=== PATIENT | male | born 1935 | race Asian ===

== ENCOUNTER → 2016-12-19 | Outpatient (CLI) | payer MEDICAID, OTHER ==
[2016-12-19 10:05] LABS: ALBUMIN 3.9 GM/DL (3.2-5.2); ALBUMIN/GLOBULIN RATIO 1.15 (1.00-1.93); ALKALINE PHOSPHATASE 70 U/L (45-117); ALT/SGPT 25 U/L (12-78); ANION GAP 6 MEQ/L (8-16); AST/SGOT 20 U/L (15-37); BILIRUBIN,TOTAL 1.7 MG/DL (0.2-1.0); BLOOD UREA NITROGEN 14 MG/DL (7-18); CALCIUM LEVEL 8.6 MG/DL (8.8-10.2); CARBON DIOXIDE LEVEL 32 MEQ/L (21-32); CHLORIDE LEVEL 103 MEQ/L (98-107); CHOLESTEROL LEVEL 176 MG/DL (<200); CREATININE FOR GFR 1.15 MG/DL (0.70-1.30); GLOMERULAR FILTRATION RATE > 60.0 (>42); GLUCOSE, FASTING 94 MG/DL (83-110); POTASSIUM SERUM 4.2 MEQ/L (3.5-5.1); SODIUM LEVEL 141 MEQ/L (136-145); TOTAL PROTEIN 7.3 GM/DL (6.4-8.2); TRIGLYCERIDES LEVEL 108 MG/DL (<150)
== END ==
LOC: M LAB 08:57
PROVIDERS: ATTEND Family Medicine Addiction Medicine
DX: Z00.01 Encounter for general adult medical examination with abnormal findings (principal); N40.0 Benign prostatic hyperplasia without lower urinary tract symptoms

== ENCOUNTER → 2017-06-20 | Outpatient (CLI) | payer OTHER ==
[2017-06-20 09:16] LABS: ALBUMIN 3.6 GM/DL (3.2-5.2); ALBUMIN/GLOBULIN RATIO 0.95 (1.00-1.93); ALKALINE PHOSPHATASE 80 U/L (45-117); ALT/SGPT 71 U/L (12-78); ANION GAP 7 MEQ/L (8-16); AST/SGOT 45 U/L (15-37); BILIRUBIN,TOTAL 1.1 MG/DL (0.2-1.0); BLOOD UREA NITROGEN 13 MG/DL (7-18); CALCIUM LEVEL 8.7 MG/DL (8.8-10.2); CARBON DIOXIDE LEVEL 30 MEQ/L (21-32); CHLORIDE LEVEL 106 MEQ/L (98-107); CHOLESTEROL LEVEL 165 MG/DL (<200); CREATININE FOR GFR 1.05 MG/DL (0.70-1.30); GLOMERULAR FILTRATION RATE > 60.0 (>42); GLUCOSE, FASTING 89 MG/DL (83-110); POTASSIUM SERUM 4.3 MEQ/L (3.5-5.1); SODIUM LEVEL 143 MEQ/L (136-145); TOTAL PROTEIN 7.4 GM/DL (6.4-8.2); TRIGLYCERIDES LEVEL 80 MG/DL (<150)
== END ==
LOC: M LAB 07:47
PROVIDERS: ATTEND Family Medicine Addiction Medicine
DX: I10 Essential (primary) hypertension (principal)

== ENCOUNTER → 2017-06-20 | Outpatient (CLI) | payer OTHER ==
[2017-06-21 10:13] LABS: PSA TOTAL 2.5 ng/mL (0.0-4.0)
== END ==
LOC: M LAB 07:50
PROVIDERS: ATTEND Specialist
DX: R97.20 Elevated prostate specific antigen [PSA] (principal)

== ENCOUNTER → 2017-08-01 | Outpatient (CLI) | payer OTHER ==
--- NOTE | 2017-08-01 07:43 | REP ---
Clinical: Cough. Technique: PA and lateral. Comparison: 05/22/2016. Findings: Mediastinum and cardiac silhouette are stable with tortuous thoracic aorta and mild cardiomegaly again appreciated. Lung burdick demonstrate diffuse chronic stable interstitial changes and scattered chronic granulomata. No obvious acute consolidation, effusion, or pneumothorax. Skeletal structures demonstrate age-related osteopenia and degenerative changes. Impression: Chronic stable interstitial changes. No obvious acute cardiopulmonary process. Signed by Farooq Rodgers MD 08/01/2017 07:34 A
== END ==
LOC: M RAD 07:15
PROVIDERS: ATTEND Family Medicine Addiction Medicine
DX: R05 Cough (principal)

== ENCOUNTER 2017-09-24 07:22 | Day surgery (SDC) | payer OTHER ==
[~2017-09-24] VITALS: Ht 160 cm; Wt 57.6 kg
[~2017-09-24 07:22] MED LIST: ACETAMINOPHEN 325 MG TAB PO PRN; AMLO5TAB2 PO; BSS with VANC/TOB/EPI for EYE CASES IR ONE; CYCLOPENTOLATE 2% OPHTH SOLN 2ML BTL OS ONE; FINA5TAB2 PO; LIDOCAINE 3.5 % 1ML OPHTH TOPICAL GEL OU ONE; OFLOXACIN 0.3 % (OCUFLOX) OPTH SOL 5ML OS ONE; PHENYLEPHRINE 2.5% OPHTH SOL 2ML OS ONE; PROPARACAINE 0.5% OPHTH SOL 15ML OS PRN; TROPICAMIDE 1% OPHTH SOLN 2ML OS ONE; Tamsulosin PO
[2017-09-24] MEDS ORDERED: KETOROLAC 0.5% OPHTH SOLN OS ONE (07:45)
[2017-09-24] MEDS ORDERED: TRIMETHOBENZAMIDE 300 MG CAP PO PRN (07:45)
[2017-09-24] MEDS ORDERED: AcetaZOLAMIDE 500 MG ER CAP PO ONE (07:45)
[2017-09-24] MEDS ORDERED: POVIDONE-IODINE 5% OPHTH PREP SOL 30ML As Ordered ONE (09:58)
[2017-09-24] MEDS ORDERED: TRIAMCINOLONE PRES FR 40 MG/ML 1ML(TRIESENCE)(OR EYE ONLY)(J3300 PER 1MG) As Ordered ONE (09:58)
[2017-09-24] MEDS ORDERED: HEALON DUET (HEALON 10MG/ML 0.55ML & HEALON ENDOCOAT 30MG/ML 0.85ML) As Ordered ONE (09:58)
[2017-09-24] MEDS ORDERED: LIDOCAINE 1% SDV 5 ML VIAL As Ordered ONE (09:58)
[2017-09-24] MEDS ORDERED: MOXIFLOXACIN IN BSS 0.25MG/0.25ML INTRACAMERAL INJ (OR EYE ONLY)(J2280) As Ordered ONE (09:58)
[2017-09-24] MEDS ORDERED: MIDAZOLAM INJ 2 MG/2 ML VIAL (J2250) As Ordered ONE (10:26)
[2017-09-24] MEDS ORDERED: fentaNYL 100 MCG/2 ML INJECTION (J3010) As Ordered ONE (10:26)
[2017-09-24] MEDS ORDERED: ACETYLCHOLINE OPHTH SOLN 1% 2ML (MIOCHOL-E) As Ordered ONE (10:31)
[2017-09-24 11:10] VITALS: BP 148/82
== END 2017-09-24 11:26 | disposition home or self-care (01) ==
LOC: M SDC 07:22
PROVIDERS: ATTEND Ophthalmology
DX: H26.9 Unspecified cataract (principal); Z87.891 Personal history of nicotine dependence; Z79.899 Other long term (current) drug therapy

== ENCOUNTER 2018-02-11 07:45 | Day surgery (SDC) | payer OTHER ==
[~2018-02-11 07:45] MED LIST changes: +ACETAMINOPHEN 325 MG TAB PO; -ACETAMINOPHEN 325 MG TAB PO PRN; -AMLO5TAB2 PO; -BSS with VANC/TOB/EPI for EYE CASES IR ONE; -CYCLOPENTOLATE 2% OPHTH SOLN 2ML BTL OS ONE; -FINA5TAB2 PO; -LIDOCAINE 3.5 % 1ML OPHTH TOPICAL GEL OU ONE; -OFLOXACIN 0.3 % (OCUFLOX) OPTH SOL 5ML OS ONE; -PHENYLEPHRINE 2.5% OPHTH SOL 2ML OS ONE; +PHENYLEPHRINE HCL 10 % OPHTH. SOL 5ML OD; -PROPARACAINE 0.5% OPHTH SOL 15ML OS PRN; +PROPARACAINE 0.5% OPHTH SOL 15ML XX; -TROPICAMIDE 1% OPHTH SOLN 2ML OS ONE; -Tamsulosin PO
[2018-02-11] MEDS: PHENYLEPHRINE 2.5% OPHTH SOL 2ML OD (09:40)
[2018-02-11] MEDS: OFLOXACIN 0.3 % (OCUFLOX) OPTH SOL 5ML OD (09:40)
[2018-02-11] MEDS: TROPICAMIDE 1% OPHTH SOLN 2ML OD (09:40)
[2018-02-11] MEDS: CYCLOPENTOLATE 2% OPHTH SOLN 2ML BTL OD (09:40)
[2018-02-11] MEDS: LIDOCAINE 3.5 % 1ML OPHTH TOPICAL GEL OU (09:41)
[2018-02-11] MEDS ORDERED: fentaNYL 100 MCG/2 ML INJECTION (J3010) As Ordered (10:25)
[2018-02-11] MEDS ORDERED: MIDAZOLAM INJ 2 MG/2 ML VIAL (J2250) As Ordered (10:25)
[2018-02-11] MEDS: POVIDONE-IODINE 5% OPHTH PREP SOL 30ML As Ordered (10:55)
[2018-02-11] MEDS: HEALON DUET (HEALON 10MG/ML 0.55ML & HEALON ENDOCOAT 30MG/ML 0.85ML) As Ordered ×3 (10:55→11:07)
[2018-02-11] MEDS: CEFUROXIME 1MG/0.1ML INTRACAMERAL INJ As Ordered (10:55)
[2018-02-11] MEDS: LIDOCAINE 1% SDV 5 ML VIAL As Ordered (10:55)
[2018-02-11] MEDS: BSS with VANC/TOB/EPI for EYE CASES IR (10:56)
[2018-02-11] MEDS ORDERED: TRIMETHOBENZAMIDE 300 MG CAP PO (11:30)
[2018-02-11] MEDS: AcetaZOLAMIDE 500 MG ER CAP PO (11:37)
[2018-02-11] MEDS: KETOROLAC 0.5% OPHTH SOLN XX (11:37)
== END 2018-02-11 12:27 | disposition home or self-care (01) ==
LOC: M SDC 07:45
DX: H25.9 Unspecified age-related cataract (principal); H40.811 Glaucoma with increased episcleral venous pressure, right eye; N40.0 Benign prostatic hyperplasia without lower urinary tract symptoms; Z87.891 Personal history of nicotine dependence; Z86.73 Personal history of transient ischemic attack (TIA), and cerebral infarction without residual deficits; Z79.51 Long term (current) use of inhaled steroids; Z79.899 Other long term (current) drug therapy
CPT/HCPCS: 66984

== ENCOUNTER → 2019-08-21 | Outpatient (CLI) | payer OTHER ==
[~2019-08-21] MED LIST changes: -ACETAMINOPHEN 325 MG TAB PO; +AMLO5TAB6 PO; +FINA5TAB2 PO; +FLOM0.4C39 PO; +INCR1INH INH; -PHENYLEPHRINE HCL 10 % OPHTH. SOL 5ML OD; -PROPARACAINE 0.5% OPHTH SOL 15ML XX; +Tamsulosin PO; +VENTAER INH
[2019-08-21 08:05] LABS: BASO % 0.7 % (0.0-1.0); EOS # 0.4 10^3/uL (0.0-0.5); EOS % 6.4 % (0.0-3.0); HEMATOCRIT 44.5 % (42.0-52.0); HEMOGLOBIN 14.2 g/dl (13.5-17.5); LYMPH # 1.2 10^3/uL (1.5-5.0); MEAN CORPUSCULAR HGB CONC 31.9 g/dl (32.0-36.5); MEAN CORPUSCULAR VOLUME 94.1 fl (80.0-96.0); MONO # 0.5 10^3/uL (0.0-0.8); MONO % 7.8 % (0.0-5.0); NEUTROPHILS # 3.7 10^3/uL (1.5-8.5); NEUTROPHILS % 64.8 % (36.0-66.0); PLATELET COUNT, AUTOMATED 197 10^3/uL (150-450); RED BLOOD COUNT 4.73 10^6/uL (4.30-6.10); WHITE BLOOD COUNT 5.7 10^3/uL (4.0-10.0)
[2019-08-21 08:35] LABS: ALBUMIN 3.7 GM/DL (3.2-5.2); ALT/SGPT 37 U/L (12-78); BILIRUBIN,TOTAL 1.6 MG/DL (0.2-1.0); BLOOD UREA NITROGEN 16 MG/DL (7-18); CARBON DIOXIDE LEVEL 31 MEQ/L (21-32); CHLORIDE LEVEL 104 MEQ/L (98-107); CHOLESTEROL LEVEL 166 MG/DL (<200); CHOLESTEROL RISK RATIO 2.553 (<5); CREATININE FOR GFR 1.23 MG/DL (0.70-1.30); GLOMERULAR FILTRATION RATE > 60.0 (>35); GLUCOSE, FASTING 87 MG/DL (70-100); HDL CHOLESTEROL 65 MG/DL (>40); LDL CHOLESTEROL 84 MG/DL (<100); NON-HDL-C 101 MG/DL; POTASSIUM SERUM 4.1 MEQ/L (3.5-5.1); PROSTATIC SPECIFIC AG MONITOR 3.88 NG/ML (< 4.00); SODIUM LEVEL 141 MEQ/L (136-145); TOTAL PROTEIN 7.6 GM/DL (6.4-8.2); TRIGLYCERIDES LEVEL 86 MG/DL (<150)
== END ==
LOC: M LAB 07:06
PROVIDERS: ATTEND Family Medicine Addiction Medicine
DX: J44.9 Chronic obstructive pulmonary disease, unspecified (principal)

== ENCOUNTER → 2019-09-05 | Outpatient (REF) | payer OTHER, MEDICAID ==
[2019-09-05 14:20] LABS: HEMOGLOBIN A1c 5.6 %
== END ==
LOC: M LAB REF 12:32
PROVIDERS: ATTEND Family Medicine
DX: Z13.228 Encounter for screening for other metabolic disorders (principal)

== ENCOUNTER → 2020-06-18 | Outpatient (REF) | payer OTHER, MEDICAID ==
[~2020-06-18] MED LIST changes: +AMLO1TAB24 PO; -AMLO5TAB6 PO; +AUGM875T28 PO; +COLA100C5 PO; +DULC5TAB PO; +PANT20TA6 PO; +PRED20TA PO; +SENN1TAB96 PO
== END ==
LOC: M LAB REF 16:52
PROVIDERS: ATTEND Nurse Practitioner Family
DX: R10.816 Epigastric abdominal tenderness (principal); R11.0 Nausea

== ENCOUNTER 2020-06-20 11:31 | Inpatient (IN) | payer MEDICAID, OTHER ==
[~2020-06-20] VITALS: Ht 162.6 cm; Wt 59.8 kg
[2020-06-20] MEDS: PANTOPRAZOLE 40MG VIAL (C9113 PER 1) IV SCH (09:00)
[~2020-06-20 11:31] MED LIST changes: -AUGM875T28 PO; -COLA100C5 PO; -DULC5TAB PO; -PANT20TA6 PO; -PRED20TA PO; -SENN1TAB96 PO
[2020-06-20] MEDS ORDERED: NS 500 ML IV ONE ×2 (12:30→12:45)
[2020-06-20 13:20] LABS: BASO % 0.3 % (0.0-1.0); EOS % 0.2 % (0.0-3.0); HEMATOCRIT 43.6 % (42.0-52.0); HEMOGLOBIN 14.4 g/dl (13.5-17.5); LYMPH # 1.1 10^3/uL (1.5-5.0); MEAN CORPUSCULAR HEMOGLOBIN 31.2 pg (27.0-33.0); MEAN CORPUSCULAR VOLUME 94.6 fl (80.0-96.0); MONO # 0.9 10^3/uL (0.0-0.8); MONO % 5.9 % (0.0-5.0); NEUTROPHILS # 13.7 10^3/uL (1.5-8.5); NEUTROPHILS % 86.2 % (36.0-66.0); PLATELET COUNT, AUTOMATED 149 10^3/uL (150-450); RED BLOOD COUNT 4.61 10^6/uL (4.30-6.10); WHITE BLOOD COUNT 15.8 10^3/uL (4.0-10.0)
[2020-06-20 13:43] LABS: ALBUMIN 3.7 GM/DL (3.2-5.2); ALT/SGPT 124 U/L (12-78); BILIRUBIN,TOTAL 8.9 MG/DL (0.2-1.0); BLOOD UREA NITROGEN 23 MG/DL (7-18); CALCIUM LEVEL 8.7 MG/DL (8.8-10.2); CARBON DIOXIDE LEVEL 32 MEQ/L (21-32); CHLORIDE LEVEL 98 MEQ/L (98-107); CK-MB VALUE MASS 3.8 NG/ML (<3.6); CPK CREATINE PHOSPHOKINASE 538 U/L (39-308); CREATININE FOR GFR 1.65 MG/DL (0.70-1.30); GLOMERULAR FILTRATION RATE 42.7 (>35); GLUCOSE, FASTING 106 MG/DL (70-100); LIPASE 117 U/L (73-393); MB/CK RELATIVE INDEX 0.71 (< OR =4); SODIUM LEVEL 135 MEQ/L (136-145); TOTAL PROTEIN 7.6 GM/DL (6.4-8.2); TROPONIN I < 0.02 NG/ML (< 0.10)
[2020-06-20] MEDS ORDERED: PIPERACILLIN/TAZOBACTAM SOD 3.375 GM in D5W MINI-BAG PLUS 50 ML IV ONE (15:30)
[2020-06-20] MEDS ORDERED: ONDANSETRON 4MG/2ML VIAL IV PRN (15:45)
[2020-06-20] MEDS: NS 1,000 ML IV SCH (16:02)
--- NOTE | 2020-06-20 16:13 | HPEPDOC ---
[facility] Medical History & Physical Date of Admission Jun 20, 2020 Date of Service: Jun 20, 2020 Attending Physician: Adrianna Zuñiga MD History and Physical CHIEF COMPLAINT: Worsening abdominal pain HISTORY OF PRESENT ILLNESS: Patient is an 84 y/o M with PMH of BPH, COPD, cataracts, HTN who presents to [facility] ER with four days of worsening abdominal pain. Patient is hard of hearing and there is a language barrier but he understands Filipino well and had family help with piecing story together. Patient has been to UC both on 06/18/20 and again today for worsening diffuse abdominal pain and abdominal bloating. Today he was noted to have acute renal failure on labs and was advised to come to ER for further evaulation. Pain is new, sharp, diffuse, constant, 8/10 on pain scale. Nothing helps the pain. He also complains of increased wheezing and SOB over the past 1 week. He has had no BM since . Denies n/v/d, chest pain, fevers, recent illness In our ER, patient was very wheezy but saturating well on RA. CT abd/pelvis showed ? RLL consolidation PNA vs. atelectasis, irregular wall thickening and distended gallbladder concerning for acute cholecystitis, irregular bladder wall thickening. Dr. Rosas (general surgery) was contacted, felt like this was not surgical at this time but to treat with antibiotics. Zosyn was given in ER. WBC 15.8, T bili was elevated at 8.9, D bili 4. 0, AST/ALT 94/124, UA neg, alk phos 121, Cr 1.65. LA pending, CXR pending. On exam, patient had distended abdomen, tympanic BS, tenderness diffusely on exam. He was given steroids, duoneb for wheezing. Case discussed with Dr. Watt who will be consulted to see to r/o biliary tree obstruction possibly causing acute cholecystitis. patient was admitted under inpatient status for acute cholecystitis, r/o biliary tree obstruction, COPD exacerbation, acute renal failure, questionable community acquired PNA. PAST MEDICAL HISTORY: 1. COPD 2. BPH 3. HTN PAST SURGICAL HISTORY: 1. Brain surgery for blood clot evacuation 2. Prostate surgery SOCIAL HISTORY: Lives in [place] with family. Tobacco use: Prior smoker 2 PPD, quit 1977. No alcohol or IV drug use Does not use walker or cane Full Code FAMILY HISTORY: Father: no medical problems. at unknown age Mother: No medical problems. at 85 y/o ALLERGIES: Please see below. HOME MEDICATIONS: Please see below. PHYSICAL EXAMINATION: VITAL SIGNS: 98.8, 108, 18, 153/81, 96% on RA GENERAL APPEARANCE: thin male, audibly wheezing, no respiratory distress HEENT: AT/NC, PERRLA, corrective lenses in place CARDIOVASCULAR: S1S2 +, no M/R/G LUNGS: Wheezing bilaterally, decreased breath sounds bilaterally. No rhonchi or rales ABDOMEN: Distended abdomen, tympanic, tender diffusely to palpation. BS + in four quadrants. MUSCULOSKELETAL: Normal ROM EXTREMITIES: No cyanosis, pulses + in all extremities. Warm to touch NEUROLOGICAL: CN 2-12 intact, no focal deficits. PSYCHIATRIC: Normal mood and affect LABORATORY DATA: See below. IMAGING: CT abd/pelvis: RLL consolidation- atelectasis vs. PNA, irregular wall thickening with distended gallbladder- acute cholecystitis vs. ___. Irregular bladder wall thickening. No ascities CXR: pending MICROBIOLOGY: BCx, sputum cx, UA ordered ASSESSMENT: 84 y/o M with PMH of BPH, HTN, COPD admitted to acute inpatient for acute cholecystitis, r/o biliary tree obstruction, COPD exacerbation, acute renal failure, questionable community acquired PNA. PLAN: 1. Abdominal pain/distention likely 2/2 to acute cholecystitis, r/o biliary tree obstruction with sepsis. Labs as seen below, CT above. Per ER attending who spoke with general surgery, c/w abx and no surgical indication at this time. Discussed with GI (Dr. Watt) who may need to do ERCP in AM. F/u GI recommendations and lactic acid, blood cultures. Zosyn, keep NPO, pain control, IVFs, daily CMP, CBC 2. COPD exacerbation. F/u official CXR results. S/p 125 mg IV solumedrol in ER. C/w duonebs ATC, albuterol PRN, methylprenisolone Q8hrs, azithromycin, zosyn, incentive spirometer. 3. Community aquired PNA. F/u official CXR results, suspicious on CT abd/pelvis and with new COPD exacerbation. C/w zosyn, azithromycin. 4. Acute renal failure likely 2/2 to sepsis, dehdration. C/w IVFs at 100 cc/hr, daily labs. Avoid nephrotoxic medications. 5. BPH. Holding home PO meds for now. 6. HTN. Slightly elevated at 150-160 mmHg systolic. Holding PO meds for now. 7. GI px. PPI IV. 8. DVT px. Enoxaparin SC daily.. DISOPOSITION: Admit to inpatient status. Possible ERCP tomorrow, f/u GI recommendations. Vital Signs Vital Signs Date Time Temp Pulse Resp B/P (MAP) Pulse Ox O2 Delivery O2 Flow Rate FiO2 06/20/20 15:15 108 18 153/81 (105) 96 Room Air 06/20/20 11:32 98.8 Laboratory Data Labs 24H Laboratory Tests 2 06/20/20 13:02: Immature Granulocyte % (Auto) 0.4, Neutrophils (%) (Auto) 86.2H, Lymphocytes (%) (Auto) 7.0L, Monocytes (%) (Auto) 5.9H, Eosinophils (%) (Auto) 0.2, Basophils (%) (Auto) 0.3, Neutrophils # (Auto) 13.7H, Lymphocytes # (Auto) 1.1L, Monocytes # (Auto) 0.9H, Eosinophils # (Auto) 0.0, Basophils # (Auto) 0.0, Nucleated Red Blood Cells % (auto) 0.0, Urine Color JASON, Urine Appearance CLEAR, Urine pH 6.0, Urine Specific [place] 1.008, Urine Protein NEGATIVE, Urine Glucose (UA) NEGATIVE, Urine Ketones NEGATIVE, Urine Blood 2+H, Urine Nitrite NEGATIVE, Urine Bilirubin NEGATIVE, Urine Urobilinogen 2.0H, Urine Leukocyte Esterase NEGATIVE, Urine WBC (Auto) 2, Urine RBC (Auto) 1, Urine Hyaline Casts (Auto) 0, Urine Bacteria (Auto) NEGATIVE, Urine Squamous Epithelial Cells 0, Urine Mucus (Auto) SMALL, Urine Sperm (Auto) , Anion Gap 5L, Glomerular Filtration Rate 42.7, Lactic Acid Level 1.4, Calcium Level 8.7L, Total Bilirubin 8.9H, Direct Bilirubin 4.0H, Aspartate Amino Transf (AST/SGOT) 94H, Alanine Aminotransferase (ALT/SGPT) 124H, Alkaline Phosphatase 121H, Total Creatine Kinase 538H, Creatine Kinase MB 3.8H, Creatine Kinase MB Relative Index 0.71, Troponin I < 0.02, Total Protein 7.6, Albumin 3.7, Albumin/Globulin Ratio 0.9, Lipase 117 CBC/BMP Laboratory Tests 06/20/20 13:02 Microbiology Microbiology 06/20/20 Blood Culture, Received Pending 06/20/20 Blood Culture, Received Pending Home Medications Scheduled Amlodipine Besylate (Amlodipine Besylate) 5 Mg Tab, 1 TAB PO DAILY Finasteride (Finasteride) 5 Mg Tab, 1 TAB PO DAILY Tamsulosin HCl (Flomax) 0.4 Mg Cap, 0.4 MG PO DAILY Umeclidinium [place] (Incruse Ellipta) 62.5 Mcg/Inh Inh, 1 PUFF INH DAILY Scheduled PRN Albuterol Sulfate (Ventolin Hfa) 108 Mcg/Act Aer, 2 PUFFS INH Q4H PRN for SHORTNESS OF BREATH Allergies Coded Allergies: No Known Allergies (Unverified , 02/08/18) A-FIB/CHADSVASC A-FIB History Current/History of A-Fib/PAF?: No Current PO Anticoag Therapy: No Age/Risk Factor Scoring CHADSVASC: CHADSVASC Response (Comments) Value Gender Risk Factor Male 0 Hx of CHF No 0 Hx of HTN Yes 1 Hx of Stroke/TIA/or VTE No 0 Hx of Diabetes No 0 Hx of Vascular Disease No 0 Total 1 Treatment Treatment ordered: Other Other anticoagulant ordered: enoxparin Adrianna Zuñiga MD Jun 20, 2020 16:13
[2020-06-20] MEDS ORDERED: ALBUTEROL SULFATE 2.5 MG/0.5 ML INH NEB SOLN NEB PRN (16:15)
[2020-06-20 16:30] VITALS: BP 120/84
[2020-06-20] MEDS ORDERED: methylPREDNISolone 125MG 2ML VIAL IV ONE (17:00)
[2020-06-20 17:40] LABS: INR 1.12; PROTHROMBIN TIME 14.6 SECONDS (11.8-14.0)
[2020-06-20 17:41] LABS: PARTIAL THROMBOPLASTIN TIME 33.3 SECONDS (25.0-38.4)
[2020-06-20] MEDS: AZITHROMYCIN INJ 500 MG, VIAL MATE ADAPTER 1 EACH in D5W 250 ML IV SCH (18:06)
--- NOTE | 2020-06-20 19:38 | CR.PDOC ---
General Date of Consultation: Jun 20, 2020 Referring Provider: Adrianna Zuñiga MD Attending Physician: HECTOR ACOSTA MD Consultation Referring physician / PCP : Dr. Zuñiga Reason for consult: Abnormal liver tests. HPI: 84 year old male patient with BPH, COPD, cataracts, HTN admitted to [facility] for abdominal pain. Patient has issues with communicating well in Urdu but able to understand well and answer questions appropriately. History also corroborated with his daughter. Patient reports having upper abdominal pain, and diffuse abdominal pain , with abdominal bloating. As per patient's family he is also having constipation.. He also complains of increased wheezing and chronic short ness of breath ( from his COPD). Patient clinically appears to have labored breathing. OFF note: In our ER, CT abd/pelvis showed ? RLL consolidation PNA vs. atelectasis, irregular wall thickening and distended gallbladder concerning for acute cholecystitis, irregular bladder wall thickening. Dr. Rosas (general surgery) was contacted, felt like this was not surgical at this time but to treat with antibiotics. Zosyn was given in ER. WBC 15.8, Patient was noted to have abnormal liver panel. Pertinent negative GI symptoms: Patient denies nausea, vomiting, diarrhea, loss of appetite, early satiety or unintentional weight loss, hematemesis, melena or hematochezia. Review of Systems: GI: as stated above CVS: No chest pain, No palpitations, No leg swelling RS: has baseline Shortness of breath, with recent worsening. [employer]: No loss of consciousness, No focal motor weakness., Hematology: No easy bruising, No gum bleeding, Musculoskeletal: No joint pain, ambulating well. : No blood in urine, No burning sensation of the urine ENT: No ear discharge/ pain, No dysphagia. Eyes: No photophobia. Skin: No rash Home medications: reviewed. No Plavix and No anticoagulants Medical h/o: As above. Surgical h/o: None on abdomen. Social h/o: Denies Alcohol, Prior history of smoking, Denies IVDA/ drugs. Family h/o of GI cancers - None Prior Endoscopies: None in past. Prior GI evaluation: None in [facility] Exam: Vitals: reviewed General: Alert and oriented x 3, not in acute distress HEENT: No pallor, no icterus. Normal oropharynx, NO cervical lymphadenopathy. Chest: symmetric with bilateral air entry, CVS: S1, S2 heard, Abdomen: non-distended, soft, non-tender, no rigidity or guarding, no palpable masses, normal bowel sounds heard. Rectal exam: Patient refused / Deferred at this time in view of scheduled colonoscopy. Extremities: pulses palpable, no pedal edema, [employer]: no focal motor or sensory deficits. Moves all extremities Skin: no rash. Labs: reviewed. Imaging: none / reviewed. Impression: -- Abnormal liver panel with cholecystitis and prior chronic abnormal liver panel with new severely elevated bilirubin levels ( both conjugated and unconjugated hyperbilirubinemia), no typical biliary pain DDx-- rule out biliary stones vs acute hepatitis vs cholecystitis related. -- Acute on chronic renal failure and abnormal bladder wall thickening and urinalysis showed blood in urine Needs further evaluation. -- Chronic constipation and no prior Colonoscopy, no family h/o colon cancer -- Likely functional vs rule out colon polyps. Recommendations: -- Patient educated about the prior test results and all questions answered. -- Oral liquid diet. -- Management of acute renal failure as per primary team. -- Consider empiric antibiotics in view of cholecystitis. -- Will schedule for ERCP based on the clinical course. -- Patient educated about the procedure(s), indications, risks (including but not limited to bleeding, infection, perforation, anesthesia risks, pancreatitis, including ), benefits and all alternatives including conservative measures without intervention. Patient verbalized understanding and consented for the procedure(s). -- Gi will follow -- Patient is educated about the plan of care and he verbalized understanding and agreed. Addendum/ Follow up ( post ERCP): 06/22/2020: Patient underwent ERCP with Sphincterotomy, balloon sweep, brush cytology of CBD and plastic stent placement. Patient tolerated the procedure well. Noted borderline dilated CBD, no stones, no cholangitis. Patient was recommended to advance diet as tolerated. Viral hepatitis work up is negative. Avoid NSAIDs for atleast 5 days. Antibiotics course for the suspected Pneumonia / cholecystitis. Miralax 17gm twice daily for constipation- to adjust dose based on bowel movements. Elective EGD to remove the CBD stent in 8-12 weeks. Follow up in GI clinic in 6 weeks Vital Signs/I&O Vital Signs Date Time Temp Pulse Resp B/P (MAP) Pulse Ox O2 Delivery O2 Flow Rate FiO2 06/20/20 16:39 97.9 103 18 171/86 (114) 95 Room Air Laboratory Data Labs 24H Laboratory Tests 2 06/20/20 13:02: Immature Granulocyte % (Auto) 0.4, Neutrophils (%) (Auto) 86.2H, Lymphocytes (%) (Auto) 7.0L, Monocytes (%) (Auto) 5.9H, Eosinophils (%) (Auto) 0.2, Basophils (%) (Auto) 0.3, Neutrophils # (Auto) 13.7H, Lymphocytes # (Auto) 1.1L, Monocytes # (Auto) 0.9H, Eosinophils # (Auto) 0.0, Basophils # (Auto) 0.0, Nucleated Red Blood Cells % (auto) 0.0, Urine Color JASON, Urine Appearance CLEAR, Urine pH 6.0, Urine Specific [place] 1.008, Urine Protein NEGATIVE, Urine Glucose (UA) NEGATIVE, Urine Ketones NEGATIVE, Urine Blood 2+H, Urine Nitrite NEGATIVE, Urine Bilirubin NEGATIVE, Urine Urobilinogen 2.0H, Urine Leukocyte Esterase NEGATIVE, Urine WBC (Auto) 2, Urine RBC (Auto) 1, Urine Hyaline Casts (Auto) 0, Urine Bacteria (Auto) NEGATIVE, Urine Squamous Epithelial Cells 0, Urine Mucus (Auto) SMALL, Urine Sperm (Auto) , Anion Gap 5L, Glomerular Filtration Rate 42.7, Lactic Acid Level 1.4, Calcium Level 8.7L, Total Bilirubin 8.9H, Direct Bilirubi n 4.0H, Aspartate Amino Transf (AST/SGOT) 94H, Alanine Aminotransferase (ALT/SGPT) 124H, Alkaline Phosphatase 121H, Total Creatine Kinase 538H, Creatine Kinase MB 3.8H, Creatine Kinase MB Relative Index 0.71, Troponin I < 0.02, Total Protein 7.6, Albumin 3.7, Albumin/Globulin Ratio 0.9, Lipase 117 06/20/20 17:22: Lactic Acid Level 2.9*H, Prothrombin Time 14.6H, Prothromb Time International Ratio 1.12, Activated Partial Thromboplast Time 33.3 CBC/BMP Laboratory Tests 06/20/20 13:02 Microbiology Microbiology 06/20/20 Blood Culture, Received Pending 06/20/20 Blood Culture, Received Pending 06/20/20 Blood Culture, Received Pending 06/20/20 Blood Culture, Received Pending Allergies Coded Allergies: No Known Allergies (Unverified , 02/08/18) Home Medications Scheduled Amlodipine Besylate (Amlodipine Besylate) 5 Mg Tab, 5 MG PO DAILY, (Reported) Finasteride (Finasteride) 5 Mg Tab, 5 MG PO DAILY, (Reported) @ NOON Tamsulosin HCl (Flomax) 0.4 Mg Cap, 0.4 MG PO QHS, (Reported) Umeclidinium [place] (Incruse Ellipta) 62.5 Mcg/Inh Inh, 1 PUFF INH DAILY, (Reported) Scheduled PRN Albuterol Sulfate (Ventolin Hfa) 108 Mcg/Act Aer, 2 PUFFS INH Q4H PRN for SHORTNESS OF BREATH, (Reported) HECTOR ACOSTA MD Jun 20, 2020 19:38
[2020-06-20] MEDS: IPRATROPIUM 0.5MG/ALBUTEROL 2.5MG INH SOL UD 3ML (DUONEB) NEB SCH (19:40)
[2020-06-20] MEDS: PIPERACILLIN/TAZOBACTAM SOD 3.375 GM in D5W MINI-BAG PLUS 50 ML IV SCH (21:09)
[2020-06-20] MEDS: HEPARIN SOD (PORCINE) 5000UNITS/ML 1ML VIAL/SYRINGE SQ SCH (21:09)
[2020-06-20] MEDS: MIRALAX *UNIT DOSE* 17GM PACKET PO SCH (21:10)
[2020-06-20 22:00] VITALS: BP 112/72
[2020-06-21] MEDS: methylPREDNISolone 125MG 2ML VIAL IV SCH ×2 (00:42→09:50)
[2020-06-21] MEDS: IPRATROPIUM 0.5MG/ALBUTEROL 2.5MG INH SOL UD 3ML (DUONEB) NEB SCH ×4 (02:08→19:12)
[2020-06-21] MEDS: PIPERACILLIN/TAZOBACTAM SOD 3.375 GM in D5W MINI-BAG PLUS 50 ML IV SCH ×4 (04:26→22:09)
[2020-06-21] MEDS: NS 1,000 ML IV SCH ×3 (04:26→22:15)
[2020-06-21 06:00] VITALS: BP 112/63
[2020-06-21 06:29] LABS: HEMATOCRIT 36.5 % (42.0-52.0); MEAN CORPUSCULAR HEMOGLOBIN 31.8 pg (27.0-33.0); MEAN CORPUSCULAR HGB CONC 33.4 g/dl (32.0-36.5); MEAN CORPUSCULAR VOLUME 95.1 fl (80.0-96.0); PLATELET COUNT, AUTOMATED 134 10^3/uL (150-450); RED BLOOD COUNT 3.84 10^6/uL (4.30-6.10); WHITE BLOOD COUNT 12.4 10^3/uL (4.0-10.0)
[2020-06-21 06:33] LABS: HEMOGLOBIN 12.2 g/dl (13.5-17.5)
[2020-06-21 06:50] LABS: LDH LACTATE DEHYDROGENASE 171 U/L (87-241)
[2020-06-21 06:51] LABS: ALBUMIN 2.6 GM/DL (3.2-5.2); BILIRUBIN,TOTAL 3.6 MG/DL (0.2-1.0); CALCIUM LEVEL 7.8 MG/DL (8.8-10.2); CREATININE FOR GFR 1.36 MG/DL (0.70-1.30); GLOMERULAR FILTRATION RATE 53.4 (>35); POTASSIUM SERUM 3.5 MEQ/L (3.5-5.1); TOTAL PROTEIN 6.5 GM/DL (6.4-8.2)
[2020-06-21] MEDS: MIRALAX *UNIT DOSE* 17GM PACKET PO SCH ×2 (09:00→22:09)
[2020-06-21] MEDS: HEPARIN SOD (PORCINE) 5000UNITS/ML 1ML VIAL/SYRINGE SQ SCH ×3 (09:51→22:10)
[2020-06-21] MEDS: PANTOPRAZOLE 40MG VIAL (C9113 PER 1) IV SCH (09:51)
[2020-06-21 12:26] LABS: HEPATITIS B SURFACE ANTIGEN NEGATIVE (NEGATIVE)
[2020-06-21 12:53] LABS: HEPATITIS B CORE ANTIBODY IGM NEGATIVE (NEGATIVE); HEPATITIS C VIRUS ABY INDEX 0.3 INDEX (<0.8)
[2020-06-21 12:56] LABS: HEPATITIS A ANTIBODY IGM NEGATIVE (NEGATIVE)
[2020-06-21] MEDS ORDERED: ALBUTEROL 90 MCG/ACT 8GM HFA INHALER INH PRN (13:45)
[2020-06-21 14:00] VITALS: BP 128/74
--- NOTE | 2020-06-21 14:14 | IPNPDOC ---
Text Note Date of Service The patient was seen on 06/21/20. NOTE HPI: Mr. Fournier is an 84 yo male that was admitted after presenting to the ED with worsening diffuse constant abdominal pain of 4 days duration and worsening shortness of breath over the past week. SUBJECTIVE: No acute events overnight. Today he states that his shortness of breath has improved and his abdominal pain is only present on palpation. He still has not had a BM in 5 days, he has passed some flatus. He is scheduled to get an MRCP today to further evaluate the abdominal pain. Pt denies fever, chills, and chest pain. OBJECTIVE: VITAL SIGNS: please see below GENERAL: Patient appears lying comfortably in bed in no acute distress. HEENT: NC, AT, EOMI, no scleral icterus, no pharyngeal erythema, mucous membranes dry. NECK: no lymphadenopathy or JVD appreciated. CV: RRR, no murmurs, gallops or rubs, +S1 and S2. RESP: diminished breath sounds bilaterally, no wheezes, crackles or rhonchi appreciated ABDOMEN: soft, distended, tympanic, tender to palpation in RUQ and RLQ, hypoactive bowel sounds EXTREMITIES: no swelling or edema. LABORATORY: please see below IMAGING: - CHEST XRAY 06/20/2020: - "RLL infiltrate atelectasis has already been identified on todays earlier xray and CT" - CHEST/ABD CT without contrast 06/20/2020: - "RLL consolidation suggests atelectasis/pneumonia" - "Irregular wall thickening of the distal stomach and duodenum as well as distended GB with trace stranding. Cannot exclude acute cholecystitis as well as further pathology" - "Prostatomegaly and irregular bladder wall thickening" - "No ascites. No adenopathy. No free air." MICROBIOLOGY: Respiratory panel negative, cultures still pending, preliminary results show no growth ASSESSMENT/PLAN: Mr. Fournier is an 84 yo M with a history of COPD presenting with a 4 day history of diffuse constant abdominal pain concerning for acute cholecystitis and a 1 week history of worsening shortness of breath concerning for pneumonia. #. RUQ Abdominal pain (acute cholecysititis vs symptomatic cholelithiasis) - CT scan unable to rule out cholecystitis, Tbili downtrending, may consider HIDA scan to determine function. - Surgery consulted, recommendations appreciated, they advise conservative therapy and continuing IV Zosyn - NPO currently, receiving IVF. Unsure if MRCP is necessary given CBD is about 5-6cm and bili downtrending. #. Community acquired Pneumonia - Shortness of breath resolved. - Chest CT showing RLL pneumonia, Zosyn should cover CAP - Solumedrol discontinued, starting PO prednisone. - Duoneb as needed #. COPD - At baseline -Continue home spiriva, advair, albuterol #. Constipation -Patient is on Miralax #. BPH -Continue Flomax, finasteride #. HTN: -Continue amlodipine DVT Prophylaxis: heparin GI prophylaxis: Not indicated, on pantoprazole VS,Fishbone, I+O VS, Fishbone, I+O Laboratory Tests 06/21/20 06:13 Vital Signs Date Time Temp Pulse Resp B/P (MAP) Pulse Ox O2 Delivery O2 Flow Rate FiO2 06/21/20 06:00 97.9 91 19 112/63 (79) 95 Room Air I&O- Last 24 Hours up to 6 AM 06/21/20 06:00 Intake Total 1033 ml Output Total 450 ml Balance 583 ml GME ATTESTATION GME ATTESTATION My faculty preceptor for this patient encounter was physically present during the encounter and was fully available. All aspects of the patient interview, examination, medical decision making process, and medical care plan development were reviewed and approved by the faculty preceptor. The faculty preceptor is aware and concurs with the plan as stated in the body of this note and will attest to such by his/her cosignature. ATTENDING NOTE Patient was seen and examined by me personally with the residents and I agree with the above assessment and plan SHOLA BELTRÁN OMS-3 Jun 21, 2020 14:13 MONA BAE MD Jun 24, 2020 13:48
[2020-06-21] MEDS ORDERED: ISOVUE-300 61% 50ML VIAL As Ordered ONE (15:19)
[2020-06-21] MEDS ORDERED: ONDANSETRON 4MG/2ML VIAL As Ordered ONE ×2 (17:20→20:26)
[2020-06-21] MEDS ORDERED: ROCURONIUM BROMIDE 50 MG/5 ML VIAL As Ordered ONE (17:20)
[2020-06-21] MEDS ORDERED: propofoL 200 MG/20 ML VIAL As Ordered ONE (17:20)
[2020-06-21] MEDS ORDERED: LIDOCAINE 2% 100MG/5ML SDV (FOR ANES.) As Ordered ONE (17:20)
[2020-06-21] MEDS ORDERED: dexameTHASONE 4 MG/ML 1ML VIAL (J1100 PER 1MG) As Ordered ONE (17:20)
[2020-06-21] MEDS ORDERED: fentaNYL 100 MCG/2 ML INJECTION (J3010) As Ordered ONE (18:20)
[2020-06-21] MEDS ORDERED: ZOSYN 3.375GM VIAL (J2543) As Ordered ONE (18:33)
[2020-06-21] MEDS: FINASTERIDE 5 MG TAB PO SCH (18:46)
[2020-06-21] MEDS: amLODIPine 5 MG TAB PO SCH (18:46)
[2020-06-21] MEDS ORDERED: AZITHROMYCIN INJ 500MG VIAL (J0456 PER 500MG) As Ordered ONE (18:46)
[2020-06-21] MEDS: AZITHROMYCIN INJ 500 MG, VIAL MATE ADAPTER 1 EACH in D5W 250 ML IV SCH (18:50)
[2020-06-21] MEDS ORDERED: SUGAMMADEX SODIUM 500 MG/5 ML VIAL (BRIDION) As Ordered ONE (19:09)
[2020-06-21] MEDS ORDERED: ONDANSETRON 4MG/2ML VIAL IV PRN (20:30)
[2020-06-21] MEDS ORDERED: fentaNYL 100 MCG/2 ML INJECTION (J3010) IV PRN (20:30)
[2020-06-21] MEDS ORDERED: ACETAMINOPHEN TAB 650MG DOSE (2X325MG) PO PRN (20:30)
[2020-06-21] MEDS ORDERED: LR 1,000 ML IV SCH (20:30)
[2020-06-21] MEDS ORDERED: FUROSEMIDE 40MG/4ML VIAL (J1940) As Ordered ONE (20:57)
[2020-06-21] MEDS ORDERED: FUROSEMIDE 20MG/2ML VIAL (J1940) IV ONE (21:00)
[2020-06-21] MEDS ORDERED: LEVALBUTEROL 1.25 MG/0.5 ML CONCENTRATE NEB INH ONE (21:00)
[2020-06-21] MEDS ORDERED: LEVALBUTEROL 1.25 MG/0.5 ML CONCENTRATE NEB As Ordered ONE (21:01)
[2020-06-21 21:30] VITALS: BP 130/76
[2020-06-21 22:00] VITALS: BP 131/76
[2020-06-21] MEDS: TAMSULOSIN 0.4 MG CAP PO SCH (22:09)
[2020-06-21 22:30] VITALS: BP 124/69
[2020-06-21 23:30] VITALS: BP 124/69
[2020-06-22] VITALS (12 sets, daily range): BP systolic 117–156; BP diastolic 55–86; O2SAT 94–99
[2020-06-22] MEDS: IPRATROPIUM 0.5MG/ALBUTEROL 2.5MG INH SOL UD 3ML (DUONEB) NEB SCH ×4 (01:02→20:09)
[2020-06-22] MEDS: PIPERACILLIN/TAZOBACTAM SOD 3.375 GM in D5W MINI-BAG PLUS 50 ML IV SCH ×2 (03:45→09:38)
[2020-06-22 06:11] LABS: HEMATOCRIT 36.2 % (42.0-52.0); HEMOGLOBIN 11.9 g/dl (13.5-17.5); MEAN CORPUSCULAR HEMOGLOBIN 31.4 pg (27.0-33.0); MEAN CORPUSCULAR HGB CONC 32.9 g/dl (32.0-36.5); MEAN CORPUSCULAR VOLUME 95.5 fl (80.0-96.0); PLATELET COUNT, AUTOMATED 157 10^3/uL (150-450); RED BLOOD COUNT 3.79 10^6/uL (4.30-6.10); WHITE BLOOD COUNT 16.2 10^3/uL (4.0-10.0)
[2020-06-22 06:44] LABS: ALBUMIN 2.7 GM/DL (3.2-5.2); BILIRUBIN,TOTAL 1.7 MG/DL (0.2-1.0); CALCIUM LEVEL 7.3 MG/DL (8.8-10.2); CREATININE FOR GFR 1.35 MG/DL (0.70-1.30); GLOMERULAR FILTRATION RATE 53.9 (>35); POTASSIUM SERUM 3.4 MEQ/L (3.5-5.1); TOTAL PROTEIN 6.6 GM/DL (6.4-8.2)
[2020-06-22] MEDS: TIOTROPIUM INHALER/CAPSULE (SPIRIVA) INH SCH (07:43)
[2020-06-22] MEDS: PANTOPRAZOLE 40MG VIAL (C9113 PER 1) IV SCH (09:39)
[2020-06-22] MEDS: NS 1,000 ML IV SCH ×2 (09:39→21:31)
[2020-06-22] MEDS: FINASTERIDE 5 MG TAB PO SCH (09:39)
[2020-06-22] MEDS: MIRALAX *UNIT DOSE* 17GM PACKET PO SCH ×2 (09:39→21:28)
[2020-06-22] MEDS: HEPARIN SOD (PORCINE) 5000UNITS/ML 1ML VIAL/SYRINGE SQ SCH ×3 (09:40→21:28)
[2020-06-22] MEDS: amLODIPine 5 MG TAB PO SCH (09:42)
[2020-06-22] MEDS ORDERED: FLEET ENEMA PR PRN (10:15)
[2020-06-22] MEDS: cefTRIAXone SOD 1 GM in D5W MINI-BAG PLUS 50 ML IV SCH (13:46)
--- NOTE | 2020-06-22 14:36 | IPNPDOC ---
Text Note Date of Service The patient was seen on 06/22/20. NOTE HPI: Mr. Fournier is an 84 yr old male that was admitted after presenting to the ED with worsening diffuse constant abdominal pain of 4 days duration and worsening shortness of breath over the previous week. SUBJECTIVE: Pt was started on 2L oxygen via nasal cannula last night after an episode of tachycardia and worsening shortness of breath after his ERCP was performed (21:00). Today he states that his shortness of breath has improved since last night as has his abdominal pain. He still has not had a BM but has passed flatus. Although patient states that he does not have abdominal pain, he appears to experience discomfort on palpation in all quadrants. Pt denies fever, chills, and chest pain. OBJECTIVE: VITAL SIGNS: Please see below. GENERAL: Pt appears resting comfortably in bed in no acute distress. HEENT: NC, AT, EOMI, no scleral icterus, no pharyngeal erythema, mucous membranes moist. NECK: no lymphadenopathy or JVD appreciated. CV: RRR, no murmurs, gallops, or rubs, +S1 and S2 RESP: diminished breath sounds bilaterally, inspiratory and expiratory wheezes bilateral lower lobes, no crackles or rhonchi appreciated. ABDOMEN: soft, distended, tympanic, nontender to palpation, hypoactive bowel sounds. EXTREMITIES: no swelling or edema. LABORATORY: Please see below. IMAGING: -CHEST XRAY 06/20/2020: -"RLL infiltrate atelectasis has already been identified on today's earlier xray and CT" -CHEST/ABD CT without contrast 06/20/2020: -"RLL consolidation suggests atelectasis/pneumonia" - "Irregular wall thickening of distal stomach and duodenum as well as distended GB with trace stranding. Cannot exclude acute cholecystitis as well as further pathology" -"Prostatomegaly and irregular bladder wall thickening" -"No ascites. No adenopathy. No free air." MICROBIOLOGY: Respiratory panel negative, cultures still pending, preliminary results show no growth. ASSESSMENT/PLAN: Mr. Forunier is an 84 yr old male with a history of COPD present ing with 4 day history of diffuse constant abdominal pain concerning for acute cholecystitis and a 1 week history of shortness of breath concerning for pneumonia. #. RUQ Abdominal Pain (acute cholecystitis vs symptomatic cholelithiasis) -CT scan unable to rule out cholecystitis, Tbili downtrending, may consider HIDA scan to determine function -Surgery consulted, recommendations appreciated, they advise conservative therapy -GI performed ERCP, per Dr. Watt, a stent was placed in the common bile duct (which resulted in a decrease in Tbili from 3.6 to 1.7), no evidence of infection or cholecystitis, source of infection is not the gallbladder, follow up outpatient with GI for an endoscopy and colonoscopy #. Community Acquired Pneumonia -Pt on 2L oxygen via nasal cannula to address episode of worsened shortness of breath last night, continue to monitor O2 saturation -Chest CT showing RLL pneumonia, started on Ceftriaxone today -Continue PO prednisone -Duoneb as needed #. COPD -Pt on 2L oxygen via nasal cannula to address episode of worsened shortness of breath last night, continue to monitor O2 saturation -Continue home spiriva, advair, albuterol -Use incentive spirometer #. Constipation -Patient is on Miralax -Fleet enemas ordered to address lack of bowel movement since hospital admission #. BPH -Continue Flomax, finasteride #. HTN -Hold amlodipine as it could be contributing to constipation DIET: Clear fluids as per GI. DVT Prophylaxis: Heparin Subq TID GI Prophylaxis: Not indicated, on Pantoprazole. VS,Fishbone, I+O VS, Fishbone, I+O Laboratory Tests 06/22/20 05:47 Vital Signs Date Time Temp Pulse Resp B/P (MAP) Pulse Ox O2 Delivery O2 Flow Rate FiO2 06/22/20 10:00 98.2 99 23 141/81 (101) 98 Nasal Cannula 2.0 I&O- Last 24 Hours up to 6 AM 06/22/20 06:00 Intake Total 920 ml Output Total 1825 ml Balance -905 ml GME ATTESTATION GME ATTESTATION My faculty preceptor for this patient encounter was physically present during the encounter and was fully available. All aspects of the patient interview, examination, medical decision making process, and medical care plan development were reviewed and approved by the faculty preceptor. The faculty preceptor is aware and concurs with the plan as stated in the body of this note and will attest to such by his/her cosignature. ATTENDING NOTE Patient was seen and examined by me personally with the residents and I agree with the above assessment and plan SHOLA BELTRÁN OMS-3 Jun 22, 2020 14:36 MONA BAE MD Jun 24, 2020 13:49
[2020-06-22] MEDS: AZITHROMYCIN INJ 500 MG, VIAL MATE ADAPTER 1 EACH in D5W 250 ML IV SCH (17:52)
[2020-06-22] MEDS: TAMSULOSIN 0.4 MG CAP PO SCH (21:27)
[2020-06-23] VITALS (9 sets, daily range): BP systolic 134–157; BP diastolic 75–87; O2SAT 99
[2020-06-23] MEDS: IPRATROPIUM 0.5MG/ALBUTEROL 2.5MG INH SOL UD 3ML (DUONEB) NEB SCH ×4 (00:43→20:00)
[2020-06-23] MEDS: HEPARIN SOD (PORCINE) 5000UNITS/ML 1ML VIAL/SYRINGE SQ SCH ×3 (05:14→20:58)
[2020-06-23 06:26] LABS: BASO % 0.1 % (0.0-1.0); HEMATOCRIT 36.9 % (42.0-52.0); HEMOGLOBIN 12.1 g/dl (13.5-17.5); LYMPH # 0.6 10^3/uL (1.5-5.0); MEAN CORPUSCULAR HEMOGLOBIN 31.6 pg (27.0-33.0); MEAN CORPUSCULAR HGB CONC 32.8 g/dl (32.0-36.5); MEAN CORPUSCULAR VOLUME 96.3 fl (80.0-96.0); MONO # 0.9 10^3/uL (0.0-0.8); MONO % 8.9 % (0.0-5.0); NEUTROPHILS # 8.2 10^3/uL (1.5-8.5); NEUTROPHILS % 84.3 % (36.0-66.0); PLATELET COUNT, AUTOMATED 154 10^3/uL (150-450); RED BLOOD COUNT 3.83 10^6/uL (4.30-6.10); WHITE BLOOD COUNT 9.7 10^3/uL (4.0-10.0)
[2020-06-23 06:48] LABS: ALBUMIN 2.7 GM/DL (3.2-5.2); ALT/SGPT 108 U/L (12-78); BILIRUBIN,TOTAL 1.2 MG/DL (0.2-1.0); BLOOD UREA NITROGEN 14 MG/DL (7-18); CALCIUM LEVEL 6.9 MG/DL (8.8-10.2); CARBON DIOXIDE LEVEL 29 MEQ/L (21-32); CHLORIDE LEVEL 109 MEQ/L (98-107); CREATININE FOR GFR 1.03 MG/DL (0.70-1.30); GLOMERULAR FILTRATION RATE > 60.0 (>35); GLUCOSE, FASTING 90 MG/DL (70-100); POTASSIUM SERUM 3.3 MEQ/L (3.5-5.1); SODIUM LEVEL 145 MEQ/L (136-145); TOTAL PROTEIN 5.9 GM/DL (6.4-8.2)
[2020-06-23] MEDS: NS 1,000 ML IV SCH (07:36)
[2020-06-23] MEDS: TIOTROPIUM INHALER/CAPSULE (SPIRIVA) INH SCH (07:52)
[2020-06-23] MEDS: ADVAIR HFA 115/21MCG INHALER INH SCH ×2 (08:00→20:12)
[2020-06-23] MEDS ORDERED: POTASSIUM CHLORIDE 10 MEQ SR TABLET PO ONE (08:15)
[2020-06-23] MEDS: MIRALAX *UNIT DOSE* 17GM PACKET PO SCH ×2 (08:53→20:58)
[2020-06-23] MEDS: FINASTERIDE 5 MG TAB PO SCH (08:53)
[2020-06-23] MEDS: PANTOPRAZOLE 40MG VIAL (C9113 PER 1) IV SCH (08:53)
[2020-06-23] MEDS ORDERED: FUROSEMIDE 40MG/4ML VIAL (J1940) IV SCH (09:00)
[2020-06-23] MEDS: predniSONE 20 MG TAB PO SCH (09:08)
--- NOTE | 2020-06-23 09:14 | IPNPDOC ---
Text Note Date of Service The patient was seen on 06/23/20. NOTE HPI: Mr. Fournier is an 84 yr old male that was admitted after presenting to the ED with worsening diffuse constant abdominal pain of 4 days duration and worsening shortness of breath over the previous week. SUBJECTIVE: No acute events overnight. Patient has no complaints this morning, his abdominal pain is improved but he is unsure if his breathing is better, he knows he definitely becomes more SOB with exertion. OBJECTIVE: VITAL SIGNS: Please see below. GENERAL: Pt appears resting comfortably in bed in no acute distress. HEENT: NC, AT, EOMI, no scleral icterus, no pharyngeal erythema, mucous membranes moist. NECK: no lymphadenopathy or JVD appreciated. CV: RRR, no murmurs, gallops, or rubs, +S1 and S2 RESP: Diminished breath sounds bilaterally, inspiratory and expiratory wheezes bilateral lower lobes, no crackles or rhonchi appreciated. ABDOMEN: soft, distended, tympanic, nontender to palpation, hypoactive bowel sounds. EXTREMITIES: no swelling or edema. LABORATORY: Please see below. IMAGING: CXR 06/20/2020: "RLL infiltrate atelectasis has already been identified on today's earlier xray and CT" CHEST/ABD CT w/o contrast 06/20/2020: "RLL consolidation suggests atelectasis/pneumonia. Irregular wall thickening of distal stomach and duodenum as well as distended GB with trace stranding. Cannot exclude acute cholecystitis as well as further pathology. Prostatomegaly and irregular bladder wall thickening. No ascites. No adenopathy. No free air." MICROBIOLOGY: Respiratory panel negative, cultures still pending, preliminary results show no growth. ASSESSMENT/PLAN: Mr. Fournier is an 84 y/o male with a history of COPD presenting with 4 day history of diffuse constant abdominal pain concerning for acute cholecystitis and a 1 week history of shortness of breath concerning for pneumonia #. RUQ Abdominal Pain (symptomatic cholelithiasis) -Resolved, we suspect the stone passed on its own which is why the tbili trended down -Surgery contacted early in admission, recommending conservative therapy with possible outpatient follow up for elective procedure. -S/p ERCP, per Dr. Watt, T-bili elevated 2/2 "common bile duct spasms", a stent was placed in the CBD, no evidence of infection or cholecystitis, source of infection is not the gallbladder, follow up outpatient with GI for an endoscopy and colonoscopy #. COPD -Pt on 2L oxygen via nasal cannula to address episode of worsened shortness of breath last night, continue to monitor O2 saturation. Desaturated to 80s with ambulation -Adding oral prednisone -Continue home spiriva, advair, albuterol -Use incentive spirometer, acapella #. Community Acquired Pneumonia -Pt on 2L oxygen via nasal cannula to address episode of worsened shortness of breath last night, continue to monitor O2 saturation -Chest CT showing RLL pneumonia, Continue Ceftriaxone #. Constipation -2BMs yesterday, continue miralax -Patient is on Miralax #. BPH -Continue Flomax, finasteride #. HTN -Hold amlodipine as it could be contributing to constipation DIET: Advance diet as tolerated DVT Prophylaxis: Heparin VS,Fishbone, I+O VS, Fishbone, I+O Laboratory Tests 06/23/20 05:35 Vital Signs Date Time Temp Pulse Resp B/P (MAP) Pulse Ox O2 Delivery O2 Flow Rate FiO2 06/23/20 06:00 98.5 97 18 135/75 (95) 98 Nasal Cannula 2.0 I&O- Last 24 Hours up to 6 AM 06/23/20 06:00 Intake Total 1275 ml Output Total 1200 ml Balance 75 ml GME ATTESTATION GME ATTESTATION My faculty preceptor for this patient encounter was physically present during the encounter and was fully available. All aspects of the patient interview, examination, medical decision making process, and medical care plan development were reviewed and approved by the faculty preceptor. The faculty preceptor is aware and concurs with the plan as stated in the body of this note and will attest to such by his/her cosignature. ATTENDING NOTE Patient was seen and examined by me personally with the residents and I agree with the above assessment and plan RONALDO HILLIARD DO Jun 23, 2020 09:14 MONA BAE MD Jun 24, 2020 13:51
[2020-06-23] MEDS ORDERED: FUROSEMIDE 40MG/4ML VIAL (J1940) IV ONE (10:00)
[2020-06-23] MEDS: cefTRIAXone SOD 1 GM in D5W MINI-BAG PLUS 50 ML IV SCH (14:31)
[2020-06-23] MEDS: AZITHROMYCIN INJ 500 MG, VIAL MATE ADAPTER 1 EACH in D5W 250 ML IV SCH (18:32)
[2020-06-23] MEDS: TAMSULOSIN 0.4 MG CAP PO SCH (20:58)
[2020-06-24] VITALS (7 sets, daily range): BP systolic 146–148; BP diastolic 80–85; O2SAT 95–100
[2020-06-24] MEDS: IPRATROPIUM 0.5MG/ALBUTEROL 2.5MG INH SOL UD 3ML (DUONEB) NEB SCH ×2 (01:32→07:58)
[2020-06-24] MEDS: HEPARIN SOD (PORCINE) 5000UNITS/ML 1ML VIAL/SYRINGE SQ SCH (05:22)
[2020-06-24 06:30] LABS: BASO % 0.1 % (0.0-1.0); EOS % 0.1 % (0.0-3.0); HEMATOCRIT 37.1 % (42.0-52.0); LYMPH # 0.7 10^3/uL (1.5-5.0); MEAN CORPUSCULAR HGB CONC 32.3 g/dl (32.0-36.5); MEAN CORPUSCULAR VOLUME 95.9 fl (80.0-96.0); MONO # 0.7 10^3/uL (0.0-0.8); MONO % 7.6 % (0.0-5.0); NEUTROPHILS # 7.6 10^3/uL (1.5-8.5); NEUTROPHILS % 82.6 % (36.0-66.0); PLATELET COUNT, AUTOMATED 158 10^3/uL (150-450); RED BLOOD COUNT 3.87 10^6/uL (4.30-6.10); WHITE BLOOD COUNT 9.2 10^3/uL (4.0-10.0)
[2020-06-24] MEDS: TIOTROPIUM INHALER/CAPSULE (SPIRIVA) INH SCH (07:58)
[2020-06-24] MEDS: ADVAIR HFA 115/21MCG INHALER INH SCH (07:58)
[2020-06-24 09:01] LABS: ALT/SGPT 148 U/L (12-78); BLOOD UREA NITROGEN 12 MG/DL (7-18); CALCIUM LEVEL 6.8 MG/DL (8.8-10.2); CARBON DIOXIDE LEVEL 34 MEQ/L (21-32); CHLORIDE LEVEL 104 MEQ/L (98-107); CREATININE FOR GFR 0.94 MG/DL (0.70-1.30); GLOMERULAR FILTRATION RATE > 60.0 (>35); GLUCOSE, FASTING 94 MG/DL (70-100); POTASSIUM SERUM 3.2 MEQ/L (3.5-5.1); SODIUM LEVEL 143 MEQ/L (136-145)
[2020-06-24 09:02] LABS: ALBUMIN 2.7 GM/DL (3.2-5.2); TOTAL PROTEIN 5.7 GM/DL (6.4-8.2)
[2020-06-24] MEDS ORDERED: FUROSEMIDE 40MG/4ML VIAL (J1940) IV ONE (09:15)
[2020-06-24] MEDS ORDERED: POTASSIUM CHLORIDE 10 MEQ SR TABLET PO ONE (09:15)
[2020-06-24] MEDS: PANTOPRAZOLE 40MG VIAL (C9113 PER 1) IV SCH (09:44)
[2020-06-24] MEDS: predniSONE 20 MG TAB PO SCH (09:45)
[2020-06-24] MEDS: FINASTERIDE 5 MG TAB PO SCH (09:45)
[2020-06-24] MEDS: MIRALAX *UNIT DOSE* 17GM PACKET PO SCH (09:45)
[2020-06-24] MEDS ORDERED: PANT20TA6 PO (11:10)
[2020-06-24] MEDS ORDERED: PRED20TA PO (11:10)
[2020-06-24] MEDS ORDERED: SENN1TAB96 PO (11:19)
[2020-06-24] MEDS ORDERED: DULC5TAB PO (11:19)
[2020-06-24] MEDS ORDERED: COLA100C5 PO (11:19)
[2020-06-24] MEDS ORDERED: AUGM875T28 PO (11:19)
--- NOTE | 2020-06-24 18:01 | DS.PDOC ---
Discharge Summary General Date of Admission Jun 20, 2020 at 15:45 Date of Discharge 06/24/2020 Attending Physician: MONA BAE MD Specialist/Consultants Involve: HECTOR ACOSTA MD Discharge Summary PROCEDURES PERFORMED DURING STAY: [None]. ADMITTING DIAGNOSES/ DISCHARGE DIAGNOSES: 1.Community acquired Pneumonia 2.Symptomatic Cholecystitis 3.Acute exacerbation of COPD. 4.Constipation. COMPLICATIONS/CHIEF COMPLAINT: Abdominal pain. HISTORY OF PRESENT ILLNESS:HISTORY OF PRESENT ILLNESS: Patient is an 84 y/o M with PMH of BPH, COPD, cataracts, HTN who presents to [facility] ER with four days of worsening abdominal pain. Patient is hard of hearing and there is a language barrier but he understands [place] well and had family help with piecing story together. Patient has been to UC both on 06/18/20 and again today for worsening diffuse abdominal pain and abdominal bloating. Today he was noted to have acute renal failure on labs and was advised to come to ER for further evaulation. Pain is new, sharp, diffuse, constant, 8/10 on pain scale. Nothing helps the pain. He also complains of increased wheezing and SOB over the past 1 week. He has had no BM since . Denies n/v/d, chest pain, fevers, recent illness HOSPITAL COURSE/DISCHARGE PLAN: Mr. Fournier is an 84 y/o male with a history of COPD presenting with 4 day history of diffuse constant abdominal pain concerning for acute cholecystitis and a 1 week history of shortness of breath concerning for pneumonia. #. RUQ Abdominal Pain (symptomatic cholelithiasis) -Resolved, we suspect the stone passed on its own which is why the tbili trended down -Surgery contacted early in admission, recommending conservative therapy with possible outpatient follow up for elective procedure. -S/p ERCP, per Dr. Acosta, T-bili elevated 2/2 "common bile duct spasms", a stent was placed in the CBD, no evidence of infection or cholecystitis, source of infection is not the gallbladder, follow up outpatient with GI for an endoscopy and colonoscopy #. COPD -Pt on 2L oxygen via nasal cannula with a saturation of 95 %. -Pt is ambulating today comfortably, goes to the bathroom by himself. Discharge plan: Taper oral [id number] mg for 5 days. -Continue home spiriva, advair, albuterol -Use incentive spirometer, acapella #. Community Acquired Pneumonia -Pt on 2L oxygen via nasal cannula -Chest CT showing RLL pneumonia, -Discharge plan: Continue Augmentin 870 mg PO BID #. Constipation -Pt has had about 4-5 bowel motions Discharge plan: Start colace, senakot and dulcolax as needed. #. BPH -Continue Flomax, finasteride #. HTN Amlodipine was held initially. Restart on discharge. DIET: Advance diet as tolerated DVT Prophylaxis: Heparin DISCHARGE MEDICATIONS: Please see below. ALLERGIES: Please see below. PHYSICAL EXAMINATION ON DISCHARGE: VITAL SIGNS: Please see below. VITAL SIGNS: Please see below. GENERAL: Pt appears resting comfortably in bed in no acute distress. HEENT: NC, AT, EOMI, no scleral icterus, no pharyngeal erythema, mucous membranes moist. NECK: no lymphadenopathy or JVD appreciated. CV: RRR, no murmurs, gallops, or rubs, +S1 and S2 RESP: Diminished breath sounds bilaterally, inspiratory and expiratory wheezes bilateral lower lobes, no crackles or rhonchi appreciated. ABDOMEN: soft, distended, tympanic, nontender to palpation, hypoactive bowel sounds. EXTREMITIES: no swelling or edema. LABORATORY DATA: Please see below. IMAGING: CXR 06/20/2020: "RLL infiltrate atelectasis has already been identified on today's earlier xray and CT" CHEST/ABD CT w/o contrast 06/20/2020: "RLL consolidation suggests atelectasis/pneumonia. Irregular wall thickening of distal stomach and duodenum as well as distended GB with trace stranding. Cannot exclude acute cholecystitis as well as further pathology. Prostatomegaly and irregular bladder wall thickening. No ascites. No adenopathy. No free air." ERCP: Impression: -- Abnormal liver panel with cholecystitis and prior chronic abnormal liver panel with new severely elevated bilirubin levels ( both conjugated and unconjugated hyperbilirubinemia), no typical biliary pain DDx-- rule out biliary stones vs acute hepatitis vs cholecystitis related. -- Acute on chronic renal failure and abnormal bladder wall thickening and urinalysis showed blood in urine Needs further evaluation. -- Chronic constipation and no prior Colonoscopy, no family h/o colon cancer -- Likely functional vs rule out colon polyps. PROGNOSIS: Fine ACTIVITY: [As tolerated]. DIET: As Tolerated DISPOSITION: 01 Home, Self-Care. DISCHARGE INSTRUCTIONS: 1.Return to the hospital in case of worsening symptoms. 2. ITEMS TO FOLLOWUP ON ON OUTPATIENT: 1. Follow up with his PCP after 7 days. 2.Follow up with Dr Acosta for Transaminitis and colonoscopy. 3.Get a follow up Chest X-ray after 4 weeks to rule out any other pathology. DISCHARGE CONDITION: [Stable]. TIME SPENT ON DISCHARGE: Greater than 40 minutes. Vital Signs/I&Os Vital Signs Date Time Temp Pulse Resp B/P (MAP) Pulse Ox O2 Delivery O2 Flow Rate FiO2 06/24/20 11:12 95 Room Air 06/24/20 11:12 96 06/24/20 09:45 2.0 06/24/20 06:00 98.6 18 146/85 (105) I&O- Last 24 Hours up to 6 AM 06/24/20 06:00 Intake Total 1845 ml Output Total 600 ml Balance 1245 ml Laboratory Data Labs 24H Laboratory Tests 2 06/24/20 05:56: Anion Gap 5L, Glomerular Filtration Rate > 60.0, Calcium Level 6.8L, Total Bilirubin 1.0, Aspartate Amino Transf (AST/SGOT) 102H, Alanine Aminotransferase (ALT/SGPT) 148H, Alkaline Phosphatase 83, Total Protein 5.7L, Albumin 2.7L, Albumin/Globulin Ratio 0.9 06/24/20 05:59: Immature Granulocyte % (Auto) 1.6, Neutrophils (%) (Auto) 82.6H, Lymphocytes (%) (Auto) 8.0L, Monocytes (%) (Auto) 7.6H, Eosinophils (%) (Auto) 0.1, Basophils (%) (Auto) 0.1, Neutrophils # (Auto) 7.6, Lymphocytes # (Auto) 0.7L, Monocytes # (Auto) 0.7, Eosinophils # (Auto) 0.0, Basophils # (Auto) 0.0, Nucleated Red Blood Cells % (auto) 0.0 CBC/BMP Laboratory Tests 06/24/20 05:56 06/24/20 05:59 Microbiology Microbiology 06/21/20 Respiratory Virus Panel (PCR) ([facility]) - Final, Complete 06/20/20 Blood Culture - Preliminary, Resulted No Growth after 72 hours. All specime... 06/20/20 Blood Culture - Preliminary, Resulted No Growth after 72 hours. All specime... 06/20/20 Blood Culture - Preliminary, Resulted No Growth after 72 hours. All specime... 06/20/20 Blood Culture - Preliminary, Resulted No Growth after 72 hours. All specime... Discharge Medications Scheduled Amlodipine Besylate (Amlodipine Besylate) 5 Mg Tab, 5 MG PO DAILY, (Reported) Amoxicillin/Potassium Clav (Augmentin 875-125 Tablet) 1 Each Tablet, 875 MG PO BID Bisacodyl (Dulcolax) 5 Mg Tablet.dr, 5 MG PO ASDIRECTED for constipation Docusate Sodium (Colace) 100 Mg Capsule, 100 MG PO BID Finasteride (Finasteride) 5 Mg Tab, 5 MG PO DAILY, (Reported) @ NOON Pantoprazole Sodium (Pantoprazole Sodium) 20 Mg Tablet.dr, 20 MG PO DAILY Prednisone (Prednisone) 20 Mg Tablet, 20 MG PO BID Please take (20 mg) tablets twice daily (morning and evening)for 5 days. Tamsulosin HCl (Flomax) 0.4 Mg Cap, 0.4 MG PO QHS, (Reported) Umeclidinium [place] (Incruse Ellipta) 62.5 Mcg/Inh Inh, 1 PUFF INH DAILY, (Reported) Scheduled PRN Albuterol Sulfate (Ventolin Hfa) 108 Mcg/Act Aer, 2 PUFFS INH Q4H PRN for SHORTNESS OF BREATH, (Reported) Sennosides/Docusate Sodium (Senexon-S 50-8.6 mg Tablet) 1 Each Tablet, 2 EACH PO BIDP PRN for CONSTIPATION Allergies Coded Allergies: No Known Allergies (Unverified , 02/08/18) GME ATTESTATION GME ATTESTATION My faculty preceptor for this patient encounter was physically present during the encounter and was fully available. All aspects of the patient interview, examination, medical decision making process, and medical care plan development were reviewed and approved by the faculty preceptor. The faculty preceptor is aware and concurs with the plan as stated in the body of this note and will attest to such by his/her cosignature. ATTENDING NOTE Patient was seen and examined by me personally with the residents and I agree with the above assessment and plan Lee Hearn MD Jun 24, 2020 14:46 MONA BAE MD Jul 05, 2020 14:18
[2020-06-26 19:10] LABS: HEPATITIS A IgG TOTAL Positive (Negative); HEPATITIS E IgM ANTIBODY Negative (Negative)
--- NOTE | 2020-07-01 07:59 | ROOR ---
Patient Name: Nick Fournier Procedure Date: 06/21/2020 6:36 PM Date of : 1935 Age: 84 Room: Main OR Gender: Male Note Status: Financial Aid Director Override Procedure: ERCP Indications: Epigastric abdominal pain, Jaundice, Elevated liver enzymes Providers: Liu Watt MD Referring MD: 2. Inpatient 2. Inpatient Requesting Provider: Medicines: Monitored Anesthesia Care Complications: No immediate complications. Procedure: Pre-Anesthesia Assessment: - Prior to the procedure, a History and Physical was performed, and patient medications and allergies were reviewed. The patient is competent. The risks and benefits of the procedure and the sedation options and risks were discussed with the patient. All questions were answered and informed consent was obtained. Patient identification and proposed procedure were verified by the physician, the nurse and the anesthesiologist in the procedure room. Mental Status Examination: alert and oriented. Airway Examination: normal oropharyngeal airway and neck mobility. Respiratory Examination: clear to auscultation. CV Examination: normal. Prophylactic Antibiotics: The patient does not require prophylactic antibiotics. Prior Anticoagulants: The patient has taken no previous anticoagulant or antiplatelet agents. ASA Grade Assessment: II - A patient with mild systemic disease. After reviewing the risks and benefits, the patient was deemed in satisfactory condition to undergo the procedure. The anesthesia plan was to use monitored anesthesia care (MAC). Immediately prior to administration of medications, the patient was re-assessed for adequacy to receive sedatives. The heart rate, respiratory rate, oxygen saturations, blood pressure, adequacy of pulmonary ventilation, and response to care were monitored throughout the procedure. The physical status of the patient was re-assessed after the procedure. The Duodenoscope was introduced through the mouth, and advanced to the duodenum and used to inject contrast into the bile duct. The ERCP was accomplished without difficulty. The patient tolerated the procedure well. Findings: The contract implementation analyst film was normal. The esophagus was successfully intubated under direct vision without detailed examination of the pharynx, larynx, and associated structures, and upper GI tract. The upper GI tract was grossly normal. The major papilla was bulging. A 0.035 inch x 260 cm straight Hydra Jagwire was passed into the biliary tree. The short-nosed traction sphincterotome was passed over the guidewire and the bile duct was then deeply cannulated. Contrast was injected. I personally interpreted the bile duct images. Ductal flow of contrast was adequate. Image quality was adequate. Contrast extended to the entire biliary tree. The main bile duct was diffusely dilated, uncertain significance. The largest diameter was 9 mm. Biliary sphincterotomy was made with a monofilament traction (standard) sphincterotome using ERBE electrocautery. There was self limited oozing from the sphincterotomy which did not require treatment. The biliary tree was swept with a 9 mm balloon starting at the bifurcation. Sludge was swept from the duct. Cells for cytology were obtained by brushing in the lower third of the main bile duct. One 8.5 Fr by 5 cm plastic stent with a single external flap and a single internal flap was placed into the common bile duct. Bile flowed through the stent. The stent was in good position. Impression: - The major papilla appeared to be bulging. - The entire main bile duct was dilated, uncertain significance. - A biliary sphincterotomy was performed. - The biliary tree was swept and sludge was found. - Cells for cytology obtained in the lower third of the main duct. - One plastic stent was placed into the common bile duct. Recommendation: - [facility]. - Patient has a contact number available for emergencies. The signs and symptoms of potential delayed complications were discussed with the patient. Return to normal activities tomorrow. Written discharge instructions were provided to the patient. - Avoid aspirin and nonsteroidal anti-inflammatory medicines for 5 days. - Clear liquid diet for 1 day, then advance as tolerated to high fiber diet and low fat diet. - Continue present medications. - Await cytology results. - Return to this GI lab for stent removal at UGI endoscopy in 3 months. - Miralax 1 capful (17 grams) in 8 ounces of water PO BID. - Return to GI clinic in [facility] (address [address] [place], [address], [place] [address]) in 4 -- 6 weeks. Please call GI clinic @ [phone] for apppointment date and time. - Return to primary care physician. Liu Watt MD Liu Watt MD 06/21/2020 7:48:21 PM Electronically signed by Liu Watt MD Number of Addenda: 0 Note Initiated On: 06/21/2020 6:36 PM Estimated Blood Loss: Estimated blood loss was minimal.
--- NOTE | 2020-07-19 16:21 | REP ---
NONCONTRAST CT ABDOMEN AND PELVIS CLINICAL: Abdominal pain. TECHNIQUE: Axial noncontrast images from the lung bases to the pubic symphysis with coronal and sagittal reformations. FINDINGS: The lung bases demonstrate ill-defined consolidation with air bronchograms involving the basilar right middle lobe. The gallbladder distended with pericholecystic inflammatory stranding in the right upper quadrant. There is also irregular appearing wall thickening extending from the level of the gastric antrum through the duodenum in the right upper quadrant. These findings are concerning for an underlying gastritis/duodenitis, although further pathology including malignancy cannot be excluded. Liver, spleen, pancreas, and bilateral adrenal glands appear relatively normal for noncontrast evaluation. The kidneys demonstrate multiple bilateral hypodensities, which likely represent simple and complex cysts. The remainder of the small and large bowel is without obstruction or further acute inflammatory process. Scattered chronic diverticula are noted without acute diverticulitis. Evaluation of the pelvis demonstrates prostatomegaly and considerable irregular bladder wall thickening, which may be secondary to outlet obstruction. No ascites. No free air. No significant retroperitoneal adenopathy. Atherosclerotic changes to the aorta noted without aneurysm. Osseous structures demonstrate age-related degenerative changes and osteopenia. There is a 2 cm sclerotic focus within the left iliac bone, possibly representing bone island. IMPRESSION: * Lung bases demonstrate basilar right middle lobe consolidation with air bronchograms requiring follow-up to resolution. * Distended gallbladder with irregular wall thickening involving the gastric antrum through duodenum and associated inflammatory type stranding in the right upper quadrant. Differential diagnosis includes cholecystitis and gastritis/duodenitis, although further pathology cannot be excluded. Consider ultrasound examination, as well as upper GI examination and endoscopy for further investigation. * Considerable prostatomegaly and irregular bladder wall thickening. Urology consultation is recommended for further investigation. KAPILD
--- NOTE | 2020-07-19 16:22 | REP ---
CHEST X-RAY CLINICAL: Shortness of breath and wheezing. TECHNIQUE: PA and lateral. FINDINGS: Mediastinum and cardiac silhouette are stable. Lung burdick demonstrate diffuse chronic interstitial changes with right basilar atelectasis/infiltrate again noted. No effusion. No pneumothorax. Skeletal structures demonstrate age-related degenerative changes. IMPRESSION: Chronic stable changes with superimposed right basilar atelectasis/infiltrate. MTDD
--- NOTE | 2020-07-19 16:23 | REP ---
ERCP CLINICAL: Chronic upper abdominal pain. TECHNIQUE: Intraoperative fluoroscopic images from ERCP examination. FINDINGS: Images demonstrate relatively normal common bile duct and intrahepatic biliary duct without filling defects to suggest obstructing choledocolith. Portion of the cystic duct is identified. The gallbladder does not fill and findings may represent recent cholecystectomy. Total fluoroscopic time 36 seconds. IMPRESSION: Relatively normal appearance of the common bile duct and intrahepatic biliary duct. No obvious filling defects and no extravasation. MTDD
== END 2020-06-24 12:41 | disposition home or self-care (01) ==
LOC: M ED 11:31 → M ED INP 15:45 → M MSPAV 16:44
PROVIDERS: ADMIT Internal Medicine; ATTEND Internal Medicine
PROC: 0F798DZ Dilation of Common Bile Duct with Intraluminal Device, Via Natural or Artificial Opening Endoscopic (ICD-10-PCS; 2020-06-21)
PROC: 0FB98ZX Excision of Common Bile Duct, Via Natural or Artificial Opening Endoscopic, Diagnostic (ICD-10-PCS; 2020-06-21)
PROC: 0FC98ZZ Extirpation of Matter from Common Bile Duct, Via Natural or Artificial Opening Endoscopic (ICD-10-PCS; principal; 2020-06-21 08:38)
DX: K81.0 Acute cholecystitis (principal); J18.9 Pneumonia, unspecified organism; N17.9 Acute kidney failure, unspecified; J44.1 Chronic obstructive pulmonary disease with (acute) exacerbation; J44.0 Chronic obstructive pulmonary disease with (acute) lower respiratory infection; I10 Essential (primary) hypertension; K59.00 Constipation, unspecified; N40.0 Benign prostatic hyperplasia without lower urinary tract symptoms; Z79.899 Other long term (current) drug therapy; Z98.49 Cataract extraction status, unspecified eye; Z87.891 Personal history of nicotine dependence

== ENCOUNTER → 2020-06-20 | Outpatient (REF) | payer OTHER | LOC: M LAB REF 17:52 | PROVIDERS: ATTEND Physician Assistant | DX: R31.9 Hematuria, unspecified (principal) ==

== ENCOUNTER → 2020-06-20 | Outpatient (CLI) | payer OTHER, MEDICAID ==
[2020-06-20 11:33] LABS: BASO % 0.1 % (0.0-1.0); EOS % 0.1 % (0.0-3.0); HEMATOCRIT 41.3 % (42.0-52.0); HEMOGLOBIN 13.8 g/dl (13.5-17.5); LYMPH # 0.9 10^3/uL (1.5-5.0); LYMPH % 5.7 % (24.0-44.0); MEAN CORPUSCULAR HEMOGLOBIN 31.7 pg (27.0-33.0); MEAN CORPUSCULAR HGB CONC 33.4 g/dl (32.0-36.5); MEAN CORPUSCULAR VOLUME 94.7 fl (80.0-96.0); MONO % 6.4 % (0.0-5.0); NEUTROPHILS % 87.1 % (36.0-66.0); PLATELET COUNT, AUTOMATED 141 10^3/uL (150-450); RED BLOOD COUNT 4.36 10^6/uL (4.30-6.10); WHITE BLOOD COUNT 16.1 10^3/uL (4.0-10.0)
[2020-06-20 12:03] LABS: ALBUMIN 3.4 GM/DL (3.2-5.2); BILIRUBIN,TOTAL 8.4 MG/DL (0.2-1.0); CALCIUM LEVEL 8.7 MG/DL (8.8-10.2); CREATININE FOR GFR 1.71 MG/DL (0.70-1.30); POTASSIUM SERUM 3.9 MEQ/L (3.5-5.1)
--- NOTE | 2020-07-19 16:19 | REP ---
ABDOMINAL SERIES RADIOGRAPHS CLINICAL: Constipation and abdominal pain/distention. TECHNIQUE: Upright view of the chest with supine and upright views of the abdomen and pelvis. FINDINGS: Frontal upright view of the chest demonstrates basilar opacity suggesting atelectasis/infiltrate. No free air below diaphragm to suspect pneumoperitoneum. Supine and upright views of the abdomen and pelvis demonstrate mild fecal stasis and possible constipation without obstruction or perforation. No organomegaly. No abnormal calcifications. Skeletal structures demonstrate osteopenia and degenerative changes. IMPRESSION: * Chest x-ray demonstrates right lower lobe opacity suggesting atelectasis/infiltrate. * Bowel gas pattern suggests mild fecal stasis without obstruction or perforation. MTDD
== END ==
LOC: M WUC 10:30
PROVIDERS: ATTEND Physician Assistant
DX: K59.00 Constipation, unspecified (principal); R14.0 Abdominal distension (gaseous); R31.9 Hematuria, unspecified; R91.8 Other nonspecific abnormal finding of lung field

== ENCOUNTER → 2020-07-05 | Outpatient (REF) | payer OTHER, MEDICAID ==
[~2020-07-05] MED LIST changes: +AUGM875T28 PO; +COLA100C5 PO; +DULC5TAB PO; +PANT20TA6 PO; +PRED20TA PO; +SENN1TAB96 PO
[2020-07-05 18:59] LABS: ALBUMIN 3.5 GM/DL (3.2-5.2); ALT/SGPT 154 U/L (12-78); BILIRUBIN,TOTAL 1.5 MG/DL (0.2-1.0); BLOOD UREA NITROGEN 12 MG/DL (7-18); CALCIUM LEVEL 8.4 MG/DL (8.8-10.2); CARBON DIOXIDE LEVEL 29 MEQ/L (21-32); CHLORIDE LEVEL 108 MEQ/L (98-107); CHOLESTEROL LEVEL 180 MG/DL (<200); CHOLESTEROL RISK RATIO 3.333 (<5); CREATININE FOR GFR 1.09 MG/DL (0.70-1.30); GLOMERULAR FILTRATION RATE > 60.0 (>35); GLUCOSE, FASTING 78 MG/DL (70-100); HDL CHOLESTEROL 54 MG/DL (>40); LDL CHOLESTEROL 105 MG/DL (<100); NON-HDL-C 126 MG/DL; POTASSIUM SERUM 4.2 MEQ/L (3.5-5.1); SODIUM LEVEL 142 MEQ/L (136-145); TOTAL PROTEIN 6.9 GM/DL (6.4-8.2); TRIGLYCERIDES LEVEL 104 MG/DL (<150)
[2020-07-05 19:23] LABS: BASO # 0.1 10^3/uL (0.0-0.2); BASO % 0.6 % (0.0-1.0); EOS # 0.1 10^3/uL (0.0-0.5); EOS % 1.4 % (0.0-3.0); HEMATOCRIT 41.6 % (42.0-52.0); HEMOGLOBIN 13.4 g/dl (13.5-17.5); LYMPH # 1.4 10^3/uL (1.5-5.0); LYMPH % 13.2 % (24.0-44.0); MEAN CORPUSCULAR HEMOGLOBIN 31.2 pg (27.0-33.0); MEAN CORPUSCULAR HGB CONC 32.2 g/dl (32.0-36.5); MONO # 0.7 10^3/uL (0.0-0.8); MONO % 6.9 % (0.0-5.0); NEUTROPHILS # 7.8 10^3/uL (1.5-8.5); NEUTROPHILS % 76.7 % (36.0-66.0); PLATELET COUNT, AUTOMATED 273 10^3/uL (150-450); RED BLOOD COUNT 4.29 10^6/uL (4.30-6.10); WHITE BLOOD COUNT 10.2 10^3/uL (4.0-10.0)
== END ==
LOC: M LAB REF 17:08
PROVIDERS: ATTEND Physician Assistant
DX: I10 Essential (primary) hypertension (principal)

== ENCOUNTER → 2020-07-23 | Outpatient (REF) | payer OTHER, MEDICAID ==
[2020-07-23 17:50] LABS: ALBUMIN 3.8 GM/DL (3.2-5.2); ALT/SGPT 35 U/L (12-78); BASO % 0.9 % (0.0-1.0); BILIRUBIN,TOTAL 1.5 MG/DL (0.2-1.0); BLOOD UREA NITROGEN 13 MG/DL (7-18); CARBON DIOXIDE LEVEL 31 MEQ/L (21-32); CHLORIDE LEVEL 107 MEQ/L (98-107); CREATININE FOR GFR 1.04 MG/DL (0.70-1.30); EOS # 0.2 10^3/uL (0.0-0.5); EOS % 5.5 % (0.0-3.0); GLOMERULAR FILTRATION RATE > 60.0 (>35); GLUCOSE, FASTING 85 MG/DL (70-100); HEMOGLOBIN 13.8 g/dl (13.5-17.5); LYMPH # 1.5 10^3/uL (1.5-5.0); LYMPH % 33.5 % (24.0-44.0); MEAN CORPUSCULAR HEMOGLOBIN 31.4 pg (27.0-33.0); MEAN CORPUSCULAR HGB CONC 32.9 g/dl (32.0-36.5); MEAN CORPUSCULAR VOLUME 95.7 fl (80.0-96.0); MONO # 0.4 10^3/uL (0.0-0.8); MONO % 8.8 % (0.0-5.0); NEUTROPHILS # 2.2 10^3/uL (1.5-8.5); NEUTROPHILS % 50.8 % (36.0-66.0); PLATELET COUNT, AUTOMATED 184 10^3/uL (150-450); POTASSIUM SERUM 3.9 MEQ/L (3.5-5.1); RED BLOOD COUNT 4.39 10^6/uL (4.30-6.10); SODIUM LEVEL 141 MEQ/L (136-145); TOTAL PROTEIN 6.9 GM/DL (6.4-8.2); WHITE BLOOD COUNT 4.3 10^3/uL (4.0-10.0)
== END ==
LOC: M LAB REF 16:59
PROVIDERS: ATTEND Family Medicine Addiction Medicine
DX: K81.9 Cholecystitis, unspecified (principal)

== ENCOUNTER → 2020-09-14 | Outpatient (CLI) | payer OTHER ==
--- NOTE | 2020-09-14 08:17 | REP ---
INDICATION: CALCULUS OF BILE DUCT W/O CHOLANGITIS OR CHOLECYST W/O OBST COMPARISON: 06/20/2020 TECHNIQUE: Supine view of the abdomen and pelvis. FINDINGS: Patient appears to be status post CBD stenting. The bowel gas pattern is nonspecific and without obstruction or obvious perforation. No obvious organomegaly. Skeletal structures are stable. IMPRESSION: 1. Status post CBD stent placement. 2. Nonspecific bowel gas pattern. <Electronically signed by Farooq Rodgers > 09/14/20 [id number]
== END ==
LOC: M RAD 07:49
PROVIDERS: ATTEND Internal Medicine Gastroenterology
DX: K80.50 Calculus of bile duct without cholangitis or cholecystitis without obstruction (principal); Z96.0 Presence of urogenital implants

== ENCOUNTER → 2020-09-30 | Outpatient (CLI) | payer OTHER, MEDICAID | LOC: M LABSMTC 11:40 | PROVIDERS: ATTEND Anesthesiology | DX: Z01.812 Encounter for preprocedural laboratory examination (principal); Z20.828 Contact with and (suspected) exposure to other viral communicable diseases ==

== ENCOUNTER 2020-10-05 09:42 | Day surgery (SDC) | payer OTHER ==
[~2020-10-05] VITALS: Ht 160 cm; Wt 56.7 kg
[2020-10-05] MEDS ORDERED: LIDOCAINE 2% 100MG/5ML SDV (FOR ANES.) As Ordered ONE (10:44)
[2020-10-05] MEDS ORDERED: propofoL 200 MG/20 ML VIAL As Ordered ONE (10:44)
[2020-10-05] MEDS ORDERED: NS 1,000 ML IV ONE (10:45)
[2020-10-05 11:23] VITALS: BP 93/55
--- NOTE | 2020-10-05 12:12 | ROOR ---
Patient Name: Nick Fournier Procedure Date: 10/05/2020 10:58 AM Date of : 1935 Age: 85 Room: [facility] Gender: Male Note Status: Finalized Procedure: Upper GI endoscopy Indications: Biliary stent removal Providers: Liu Watt MD Referring MD: Sedrick PAT MD Requesting Provider: Medicines: Monitored Anesthesia Care Complications: No immediate complications. Procedure: Pre-Anesthesia Assessment: - Prior to the procedure, a History and Physical was performed, and patient medications and allergies were reviewed. The patient is competent. The risks and benefits of the procedure and the sedation options and risks were discussed with the patient. All questions were answered and informed consent was obtained. Patient identification and proposed procedure were verified by the physician, the nurse and the anesthesiologist in the procedure room. Mental Status Examination: alert and oriented. Prophylactic Antibiotics: The patient does not require prophylactic antibiotics. Prior Anticoagulants: The patient has taken no previous anticoagulant or antiplatelet agents. ASA Grade Assessment: II - A patient with mild systemic disease. After reviewing the risks and benefits, the patient was deemed in satisfactory condition to undergo the procedure. The anesthesia plan was to use monitored anesthesia care (MAC). Immediately prior to administration of medications, the patient was re-assessed for adequacy to receive sedatives. The heart rate, respiratory rate, oxygen saturations, blood pressure, adequacy of pulmonary ventilation, and response to care were monitored throughout the procedure. The physical status of the patient was re-assessed after the procedure. The Endoscope was introduced through the mouth, and advanced to the second part of duodenum. The upper GI endoscopy was accomplished without difficulty. The patient tolerated the procedure well. Findings: The examined esophagus was normal. Diffuse moderate inflammation characterized by erosions, erythema and granularity was found in the gastric body and in the gastric antrum. Biopsies were taken with a cold forceps for histology. Biopsies were taken with a cold forceps for Helicobacter pylori testing. Verification of patient identification for the specimen was done by the physician and nurse using the patient's name, date and medical record number. Estimated blood loss was minimal. A previously placed plastic stent was seen in the ampulla. Removal of a stent was accomplished with a snare. Impression: - Normal esophagus. - Gastritis. Biopsied. - Plastic stent in the duodenum. Removed. Recommendation: - Patient has a contact number available for emergencies. The signs and symptoms of potential delayed complications were discussed with the patient. Return to normal activities tomorrow. Written discharge instructions were provided to the patient. - High fiber diet. - Continue present medications. - Await pathology results. - Return to GI clinic if persistent symptoms or new symptoms. - Return to primary care physician. Procedure Code(s): --- Professional --- 63296, Esophagogastroduodenoscopy, flexible, transoral; with removal of foreign body(s) 57501, Esophagogastroduodenoscopy, flexible, transoral; with biopsy, single or multiple Diagnosis Code(s): --- Professional --- K29.70, Gastritis, unspecified, without bleeding Z46.59, Encounter for fitting and adjustment of other gastrointestinal appliance and device CPT copyright 2019 [employer]. All rights reserved. The codes documented in this report are preliminary and upon public relations associate review may be revised to meet current compliance requirements. Liu Watt MD Liu Watt MD 10/05/2020 12:11:25 PM Electronically signed by Liu Watt MD Number of Addenda: 0 Note Initiated On: 10/05/2020 10:58 AM Estimated Blood Loss: Estimated blood loss was minimal.
== END 2020-10-05 12:23 | disposition home or self-care (01) ==
LOC: M OPP 09:42
PROVIDERS: ATTEND Internal Medicine Gastroenterology
DX: K29.70 Gastritis, unspecified, without bleeding (principal); Z46.59 Encounter for fitting and adjustment of other gastrointestinal appliance and device; Z86.73 Personal history of transient ischemic attack (TIA), and cerebral infarction without residual deficits; Z79.899 Other long term (current) drug therapy

== ENCOUNTER 2022-08-04 13:58 | Inpatient (IN) | payer OTHER ==
[~2022-08-04] VITALS: Ht 162.6 cm; Wt 54.0 kg
[~2022-08-04 13:58] MED LIST changes: -AZIT-12 PO; -DOCU100C16 PO; -FLUTISP; -LORA-674 PO; -MILKSUS3 PO; -PANT40TA29 PO; -PRED10TA2 PO
[2022-08-04] MEDS ORDERED: MILKSUS3 PO (14:09)
[2022-08-04] MEDS ORDERED: MORPHINE 4 MG/ML 1ML VIAL/SYRINGE IV ONE (16:00)
[2022-08-04] MEDS ORDERED: NS 500 ML IV ONE (16:00)
[2022-08-04] MEDS ORDERED: ISOVUE-370 76% 100ML VIAL As Ordered ONE (16:04)
[2022-08-04] MEDS ORDERED: fentaNYL 100 MCG/2 ML INJECTION IV ONE (17:35)
[2022-08-04] MEDS ORDERED: ONDANSETRON 4MG 2ML VIAL IV PRN (19:25)
[2022-08-04] MEDS ORDERED: MORPHINE 2 MG/ML 1ML VIAL IV PRN (19:25)
[2022-08-04] MEDS ORDERED: GLUCOSE 4GM CHEW TABLET PO PRN (19:30)
[2022-08-04] MEDS ORDERED: GLUCAGON INJ 1MG VIAL SC PRN (19:30)
[2022-08-04] MEDS ORDERED: DEXTROSE 50% 50 ML SYRINGE IV PRN (19:30)
[2022-08-04] MEDS ORDERED: DOCU100C16 PO (19:35)
[2022-08-04] MEDS ORDERED: LORA-674 PO (19:35)
[2022-08-04] MEDS ORDERED: PANT40TA29 PO (19:35)
[2022-08-04] MEDS ORDERED: FLUTISP (19:35)
[2022-08-04] MEDS ORDERED: HOME MED LIST COMPLETE! XX SCH (19:40)
[2022-08-04] MEDS ORDERED: ALBUTEROL 90 MCG/ACT 8GM HFA INHALER INH PRN (19:45)
[2022-08-04 22:10] VITALS: BP 164/90
[2022-08-04] MEDS: D5W/0.45% SODIUM CHLORIDE 1,000 ML IV SCH (22:57)
[2022-08-05] MEDS: MORPHINE 4 MG/ML 1ML VIAL/SYRINGE IV PRN ×2 (00:58→04:11)
[2022-08-05] MEDS ORDERED: KETOROLAC 30 MG/ML 1ML VIAL IV ONE (01:05)
[2022-08-05 05:46] LABS: HEMOGLOBIN 11.8 g/dl (13.5-17.5); MEAN CORPUSCULAR HEMOGLOBIN 32.5 pg (27.0-33.0); MEAN CORPUSCULAR HGB CONC 32.8 g/dl (32.0-36.5); MEAN CORPUSCULAR VOLUME 99.2 fl (80.0-96.0); PLATELET COUNT, AUTOMATED 172 10^3/uL (150-450); RED BLOOD COUNT 3.63 10^6/uL (4.30-6.10); WHITE BLOOD COUNT 11.8 10^3/uL (4.0-10.0)
[2022-08-05 06:00] VITALS: BP 150/74
[2022-08-05] MEDS: D5W/0.45% SODIUM CHLORIDE 1,000 ML IV SCH ×2 (06:06→13:59)
[2022-08-05 06:27] LABS: BLOOD UREA NITROGEN 17 MG/DL (7-18); CALCIUM LEVEL 8.2 MG/DL (8.8-10.2); CARBON DIOXIDE LEVEL 29 MEQ/L (21-32); CHLORIDE LEVEL 106 MEQ/L (98-107); CREATININE FOR GFR 1.02 MG/DL (0.70-1.30); GLOMERULAR FILTRATION RATE > 60.0 (>35); GLUCOSE, FASTING 142 MG/DL (70-100); MAGNESIUM LEVEL 2.7 MG/DL (1.8-2.4); SODIUM LEVEL 138 MEQ/L (136-145)
[2022-08-05] MEDS ORDERED: PILL CUTTER 1 EACH XX ONE (06:28)
[2022-08-05] MEDS: TIOTROPIUM INHALER/CAPSULE (SPIRIVA) INH SCH ×2 (07:57→07:58)
[2022-08-05] MEDS: PANTOPRAZOLE 40MG VIAL IV SCH (08:40)
[2022-08-05] MEDS ORDERED: FLUBLOK(EGG FREE)(QUAD)INFLUENZA VACC 0.5ML SYRINGE 18YRS & OLDER IM.IMMUN ONE (09:00)
[2022-08-05] MEDS ORDERED: MOM 30ML SUSPENSION UDC PO ONE (10:00)
[2022-08-05] MEDS ORDERED: FLEET ENEMA PR ONE (10:00)
[2022-08-05] MEDS: FLUTICASONE PROP 0.05% NASAL SPRAY 16 GM (FLONASE) SCH (10:14)
[2022-08-05 14:00] VITALS: BP 166/87
[2022-08-05 19:47] VITALS: BP 164/87
[2022-08-05] MEDS: CHLORASEPTIC SPRAY MT PRN (21:29)
[2022-08-05] MEDS ORDERED: IPRATROPIUM 0.5MG/ALBUTEROL 2.5MG INH SOL UD 3ML (DUONEB) NEB ONE (23:35)
[2022-08-06] MEDS: CHLORASEPTIC SPRAY MT PRN (00:22)
[2022-08-06] MEDS: D5W/0.45% SODIUM CHLORIDE 1,000 ML IV SCH (00:23)
[2022-08-06 01:09] VITALS: BP 161/87
[2022-08-06] MEDS ORDERED: methylPREDNISolone 125MG 2ML VIAL IV STA (01:12)
[2022-08-06] MEDS ORDERED: BENZONATATE 100MG CAPSULE PO PRN (01:15)
[2022-08-06] MEDS: IPRATROPIUM 0.5MG/ALBUTEROL 2.5MG INH SOL UD 3ML (DUONEB) NEB SCH ×3 (03:50→11:16)
[2022-08-06 05:25] VITALS: BP 145/78
[2022-08-06 06:06] LABS: HEMATOCRIT 37.3 % (42.0-52.0); HEMOGLOBIN 12.2 g/dl (13.5-17.5); MEAN CORPUSCULAR HGB CONC 32.7 g/dl (32.0-36.5); MEAN CORPUSCULAR VOLUME 97.9 fl (80.0-96.0); PLATELET COUNT, AUTOMATED 179 10^3/uL (150-450); RED BLOOD COUNT 3.81 10^6/uL (4.30-6.10); WHITE BLOOD COUNT 8.7 10^3/uL (4.0-10.0)
[2022-08-06 06:40] LABS: BLOOD UREA NITROGEN 14 MG/DL (7-18); CARBON DIOXIDE LEVEL 27 MEQ/L (21-32); CHLORIDE LEVEL 106 MEQ/L (98-107); CREATININE FOR GFR 1.04 MG/DL (0.70-1.30); GLOMERULAR FILTRATION RATE > 60.0 (>35); GLUCOSE, FASTING 174 MG/DL (70-100); MAGNESIUM LEVEL 2.6 MG/DL (1.8-2.4); NT-PRO BNP 1158 PG/ML (<450); POTASSIUM SERUM 3.7 MEQ/L (3.5-5.1); SODIUM LEVEL 139 MEQ/L (136-145)
[2022-08-06] MEDS: TIOTROPIUM INHALER/CAPSULE (SPIRIVA) INH SCH (07:51)
[2022-08-06] MEDS: PANTOPRAZOLE 40MG VIAL IV SCH (08:29)
[2022-08-06] MEDS: FLUTICASONE PROP 0.05% NASAL SPRAY 16 GM (FLONASE) SCH (08:29)
[2022-08-06] MEDS ORDERED: ENOXAPARIN 40MG/0.4ML SYRINGE (J1650 PER 10MG) SC SCH (09:00)
[2022-08-06] MEDS ORDERED: PRED10TA2 PO (09:15)
[2022-08-06] MEDS ORDERED: AZITHROMYCIN 250MG TABLET PO ONE (09:15)
[2022-08-06] MEDS ORDERED: AZIT-12 PO (09:15)
[2022-08-06] MEDS ORDERED: METOPROLOL TART 12.5 MG PER 1/2 TAB PO ONE (09:20)
[2022-08-06] MEDS ORDERED: FUROSEMIDE 20MG/2ML VIAL (J1940) IV ONE (10:00)
[2022-08-06] MEDS ORDERED: FUROSEMIDE 40MG/4ML VIAL (J1940) IV ONE (10:00)
[2022-08-06] MEDS ORDERED: LEVALBUTEROL 1.25 MG/0.5 ML CONCENTRATE NEB NEB ONE (10:00)
[2022-08-06] MEDS ORDERED: predniSONE 20 MG TAB PO ONE (10:00)
[2022-08-06 10:11] VITALS: BP 142/78
[2022-08-06] MEDS ORDERED: LEVALBUTEROL 1.25 MG/0.5 ML CONCENTRATE NEB INH SCH (12:00)
[2022-08-07] MEDS ORDERED: AZITHROMYCIN 250MG TABLET PO SCH (09:00)
== END 2022-08-06 14:53 | disposition home or self-care (01) | DRG 247 ==
LOC: M ED 13:58 → M ED INP 18:42 → ENRESERV 20:58 → M MSPAV 22:49
PROVIDERS: ADMIT Internal Medicine; ATTEND General Practice
DX: K56.7 Ileus, unspecified (principal); J44.1 Chronic obstructive pulmonary disease with (acute) exacerbation; E87.70 Fluid overload, unspecified; E83.42 Hypomagnesemia; I10 Essential (primary) hypertension; N28.1 Cyst of kidney, acquired; N40.0 Benign prostatic hyperplasia without lower urinary tract symptoms; Z86.73 Personal history of transient ischemic attack (TIA), and cerebral infarction without residual deficits; Z98.42 Cataract extraction status, left eye; Z79.899 Other long term (current) drug therapy

== ENCOUNTER → 2022-08-04 | Outpatient (CLI) | payer OTHER ==
[~2022-08-04] MED LIST changes: +AZIT-12 PO; +DOCU100C16 PO; +FLUTISP; +LORA-674 PO; +MILKSUS3 PO; +PANT40TA29 PO; +PRED10TA2 PO
[2022-08-04 10:20] LABS: BASO % 0.2 % (0.0-1.0); EOS % 0.1 % (0.0-3.0); HEMATOCRIT 40.9 % (42.0-52.0); HEMOGLOBIN 13.6 g/dl (13.5-17.5); LYMPH # 0.7 10^3/uL (1.5-5.0); LYMPH % 4.8 % (24.0-44.0); MEAN CORPUSCULAR HEMOGLOBIN 32.5 pg (27.0-33.0); MEAN CORPUSCULAR HGB CONC 33.3 g/dl (32.0-36.5); MEAN CORPUSCULAR VOLUME 97.6 fl (80.0-96.0); MONO # 0.8 10^3/uL (0.0-0.8); MONO % 5.9 % (2.0-8.0); NEUTROPHILS # 12.2 10^3/uL (1.5-8.5); NEUTROPHILS % 88.5 % (36.0-66.0); PLATELET COUNT, AUTOMATED 181 10^3/uL (150-450); RED BLOOD COUNT 4.19 10^6/uL (4.30-6.10); WHITE BLOOD COUNT 13.8 10^3/uL (4.0-10.0)
[2022-08-04 10:48] LABS: ALBUMIN 3.9 GM/DL (3.2-5.2); ALT/SGPT 49 U/L (12-78); AMYLASE 75 U/L (25-115); BILIRUBIN,TOTAL 3.8 MG/DL (0.2-1.0); BLOOD UREA NITROGEN 15 MG/DL (7-18); CALCIUM LEVEL 9.2 MG/DL (8.8-10.2); CARBON DIOXIDE LEVEL 29 MEQ/L (21-32); CHLORIDE LEVEL 104 MEQ/L (98-107); CREATININE FOR GFR 1.08 MG/DL (0.70-1.30); GLOMERULAR FILTRATION RATE > 60.0 (>35); GLUCOSE, FASTING 115 MG/DL (70-100); LIPASE 69 U/L (73-393); POTASSIUM SERUM 3.8 MEQ/L (3.5-5.1); SODIUM LEVEL 137 MEQ/L (136-145)
== END ==
LOC: M WUC 08:54
PROVIDERS: ATTEND Physician Assistant
DX: R10.84 Generalized abdominal pain (principal); R07.1 Chest pain on breathing

== ENCOUNTER 2023-05-10 07:20 | Day surgery (SDC) | payer OTHER ==
[~2023-05-10] VITALS: Ht 157.5 cm; Wt 49.0 kg
[~2023-05-10 07:20] MED LIST changes: +AZIT-12 PO; +DOCU100C16 PO; +FLUT50SP17; +LORA-674 PO; +MILKSUS3 PO; +NS 1,000 ML IV ONE; +PANT40TA29 PO; +PRED10TA2 PO
[2023-05-10 09:48] VITALS: TEMP 97
[2023-05-10] MEDS ORDERED: LIDOCAINE 2% 100MG/5ML SDV (FOR ANES.) As Ordered ONE (09:53)
[2023-05-10] MEDS ORDERED: propofoL 200 MG/20 ML VIAL As Ordered ONE (09:53)
[2023-05-10 09:55] VITALS: BP 105/64; O2SAT 98
== END 2023-05-10 10:04 | disposition home or self-care (01) ==
LOC: M OPP 07:20
PROVIDERS: ATTEND Internal Medicine Gastroenterology
DX: Z12.11 Encounter for screening for malignant neoplasm of colon (principal); Z86.010 Personal history of colon polyps; D12.6 Benign neoplasm of colon, unspecified; K64.4 Residual hemorrhoidal skin tags; K64.8 Other hemorrhoids; T18.4XXA Foreign body in colon, initial encounter

== ENCOUNTER 2023-06-06 14:02 | Inpatient (IN) | payer OTHER ==
[~2023-06-06] VITALS: Ht 165.1 cm; Wt 53.3 kg
[~2023-06-06 14:02] MED LIST changes: -NS 1,000 ML IV ONE
[2023-06-06] MEDS ORDERED: NS 1,560 ML in IV 1 EA IV ONE (15:10)
[2023-06-06] MEDS ORDERED: cefTRIAXone SOD 1 GM in D5W MINI-BAG PLUS 50 ML IV ONE (15:10)
[2023-06-06 15:23] LABS: BASO % 0.2 % (0.0-1.0); EOS % 0.2 % (0.0-3.0); HEMATOCRIT 38.5 % (42.0-52.0); HEMOGLOBIN 12.8 g/dl (13.5-17.5); LYMPH # 0.8 10^3/uL (1.5-5.0); LYMPH % 6.3 % (24.0-44.0); MEAN CORPUSCULAR HEMOGLOBIN 31.6 pg (27.0-33.0); MEAN CORPUSCULAR HGB CONC 33.2 g/dl (32.0-36.5); MEAN CORPUSCULAR VOLUME 95.1 fl (80.0-96.0); MONO # 0.5 10^3/uL (0.0-0.8); MONO % 3.9 % (2.0-8.0); NEUTROPHILS # 10.8 10^3/uL (1.5-8.5); NEUTROPHILS % 88.6 % (36.0-66.0); PLATELET COUNT, AUTOMATED 151 10^3/uL (150-450); RED BLOOD COUNT 4.05 10^6/uL (4.30-6.10); WHITE BLOOD COUNT 12.2 10^3/uL (4.0-10.0)
[2023-06-06 15:29] LABS: ALBUMIN 3.5 G/DL (3.2-5.2); BILIRUBIN,DIRECT 1.2 MG/DL (<0.4); BILIRUBIN,TOTAL 3.2 MG/DL (0.3-1.2); CALCIUM LEVEL 8.9 MG/DL (8.3-10.6); CREATININE FOR GFR 1.56 MG/DL (0.70-1.30); GLOMERULAR FILTRATION RATE 45.3 (>35); POTASSIUM SERUM 4.3 MMOL/L (3.5-5.1); TOTAL PROTEIN 6.8 G/DL (5.7-8.2)
[2023-06-06] MEDS ORDERED: ACETAMINOPHEN 325 MG TAB PO ONE (17:05)
[2023-06-06] MEDS ORDERED: IPRATROPIUM 0.5MG/ALBUTEROL 2.5MG INH SOL UD 3ML (DUONEB) NEB ONE (17:10)
[2023-06-06] MEDS ORDERED: ISOVUE-370 76% 100ML VIAL As Ordered ONE (17:46)
[2023-06-06 18:00] LABS: ERYTHROCYTE SEDIMENTATION RATE 80 mm/hr (0-20)
[2023-06-06 18:05] LABS: C REACTIVE PROTEIN QUANTITATIV 28.2 MG/DL (<1.0)
[2023-06-06] MEDS ORDERED: IBUPROFEN 400MG TAB PO ONE (18:05)
[2023-06-06] MEDS ORDERED: metroNIDAZOLE 500 MG in IV 1 EA IV ONE (18:45)
[2023-06-06] MEDS: NS 1,000 ML IV SCH (22:29)
[2023-06-06] MEDS ORDERED: HOME MED LIST COMPLETE! XX SCH (22:40)
[2023-06-06 23:59] VITALS: BP 100/56; TEMP 97; O2SAT 98
[2023-06-07] VITALS (17 sets, daily range): BP systolic 98–198; BP diastolic 53–89; TEMP 97.3–104.3; O2SAT 95–100
[2023-06-07] MEDS ORDERED: ALBUTEROL 90 MCG/ACT 8GM HFA INHALER INH PRN ×2 (02:35)
[2023-06-07] MEDS ORDERED: FLUTICASONE PROP 0.05% NASAL SPRAY 16 GM (FLONASE) PRN (02:35)
[2023-06-07] MEDS: metroNIDAZOLE 500 MG in IV 1 EA IV SCH ×3 (02:53→18:00)
[2023-06-07 05:07] LABS: BASO % 0.3 % (0.0-1.0); EOS % 0.4 % (0.0-3.0); HEMATOCRIT 32.2 % (42.0-52.0); LYMPH # 0.3 10^3/uL (1.5-5.0); LYMPH % 4.7 % (24.0-44.0); MEAN CORPUSCULAR HEMOGLOBIN 31.5 pg (27.0-33.0); MEAN CORPUSCULAR HGB CONC 33.5 g/dl (32.0-36.5); MEAN CORPUSCULAR VOLUME 93.9 fl (80.0-96.0); MONO # 0.8 10^3/uL (0.0-0.8); MONO % 11.1 % (2.0-8.0); NEUTROPHILS # 6.1 10^3/uL (1.5-8.5); PLATELET COUNT, AUTOMATED 107 10^3/uL (150-450); RED BLOOD COUNT 3.43 10^6/uL (4.30-6.10); WHITE BLOOD COUNT 7.3 10^3/uL (4.0-10.0)
[2023-06-07 05:21] LABS: HEMOGLOBIN 10.8 g/dl (13.5-17.5)
[2023-06-07 05:41] LABS: ALBUMIN 2.6 G/DL (3.2-5.2); ALKALINE PHOSPHATASE 88 U/L (46-116); ALT/SGPT 45 U/L (7.0-40); AST/SGOT 37 U/L (<34); BILIRUBIN,TOTAL 1.4 MG/DL (0.3-1.2); BLOOD UREA NITROGEN 21 MG/DL (9-23); CALCIUM LEVEL 7.6 MG/DL (8.3-10.6); CARBON DIOXIDE LEVEL 26 MMOL/L (20-31); CHLORIDE LEVEL 106 MMOL/L (98-107); CREATININE FOR GFR 1.19 MG/DL (0.70-1.30); GLOMERULAR FILTRATION RATE > 60.0 (>35); GLUCOSE, FASTING 111 MG/DL (74-106); MAGNESIUM LEVEL 2.4 MG/DL (1.8-2.4); POTASSIUM SERUM 3.9 MMOL/L (3.5-5.1); SODIUM LEVEL 139 MMOL/L (136-145); TOTAL PROTEIN 5.1 G/DL (5.7-8.2)
[2023-06-07] MEDS: cefTRIAXone SOD 2 GM in D5W MINI-BAG PLUS 50 ML IV SCH (06:09)
[2023-06-07] MEDS: TIOTROPIUM INHALER/CAPSULE (SPIRIVA) INH SCH (07:15)
[2023-06-07] MEDS: amLODIPine 5 MG TAB PO SCH (09:10)
[2023-06-07] MEDS: LORATADINE 10 MG TAB PO SCH (09:10)
[2023-06-07] MEDS: PANTOPRAZOLE 40MG TAB (PROTONIX) PO SCH (09:10)
[2023-06-07] MEDS: NS 1,000 ML IV SCH (10:47)
[2023-06-07] MEDS: FINASTERIDE 5MG TAB PO SCH (11:13)
[2023-06-07] MEDS ORDERED: LIDOCAINE 1% MDV 20ML VIAL As Ordered ONE (13:36)
[2023-06-07] MEDS: ACETAMINOPHEN TAB 650MG DOSE (2X325MG) PO PRN (14:38)
[2023-06-07] MEDS ORDERED: MORPHINE 2 MG/ML 1ML VIAL IV PRN (14:40)
[2023-06-07] MEDS ORDERED: IPRATROPIUM 0.5MG/ALBUTEROL 2.5MG INH SOL UD 3ML (DUONEB) NEB ONE (14:50)
[2023-06-07] MEDS ORDERED: KETOROLAC 30 MG/ML 1ML VIAL IV ONE (15:25)
[2023-06-07] MEDS ORDERED: PROHANCE 279.3MG/ML 5ML VIAL As Ordered ONE (19:58)
[2023-06-07] MEDS: TAMSULOSIN 0.4 MG CAP PO SCH (21:14)
[2023-06-08] VITALS (7 sets, daily range): BP systolic 136–154; BP diastolic 66–74; TEMP 97.7–103; O2SAT 96–97
[2023-06-08] MEDS: metroNIDAZOLE 500 MG in IV 1 EA IV SCH ×3 (03:06→18:38)
[2023-06-08 04:14] LABS: BASO % 0.4 % (0.0-1.0); EOS # 0.1 10^3/uL (0.0-0.5); EOS % 0.6 % (0.0-3.0); HEMATOCRIT 33.4 % (42.0-52.0); LYMPH # 0.4 10^3/uL (1.5-5.0); LYMPH % 4.7 % (24.0-44.0); MEAN CORPUSCULAR HEMOGLOBIN 31.1 pg (27.0-33.0); MEAN CORPUSCULAR HGB CONC 32.9 g/dl (32.0-36.5); MEAN CORPUSCULAR VOLUME 94.4 fl (80.0-96.0); MONO # 0.7 10^3/uL (0.0-0.8); MONO % 8.3 % (2.0-8.0); NEUTROPHILS # 6.9 10^3/uL (1.5-8.5); NEUTROPHILS % 85.6 % (36.0-66.0); PLATELET COUNT, AUTOMATED 124 10^3/uL (150-450); RED BLOOD COUNT 3.54 10^6/uL (4.30-6.10)
[2023-06-08 04:50] LABS: ALBUMIN 2.6 G/DL (3.2-5.2); ALKALINE PHOSPHATASE 91 U/L (46-116); ALT/SGPT 53 U/L (7.0-40); AST/SGOT 63 U/L (<34); BILIRUBIN,TOTAL 0.9 MG/DL (0.3-1.2); BLOOD UREA NITROGEN 22 MG/DL (9-23); CALCIUM LEVEL 7.6 MG/DL (8.3-10.6); CARBON DIOXIDE LEVEL 23 MMOL/L (20-31); CHLORIDE LEVEL 109 MMOL/L (98-107); CREATININE FOR GFR 1.01 MG/DL (0.70-1.30); GLOMERULAR FILTRATION RATE > 60.0 (>35); GLUCOSE, FASTING 96 MG/DL (74-106); POTASSIUM SERUM 4.4 MMOL/L (3.5-5.1); SODIUM LEVEL 142 MMOL/L (136-145); TOTAL PROTEIN 5.3 G/DL (5.7-8.2)
[2023-06-08 04:57] LABS: PROCALCITONIN 9.13 ng/ml
[2023-06-08] MEDS: cefTRIAXone SOD 2 GM in D5W MINI-BAG PLUS 50 ML IV SCH (06:05)
[2023-06-08] MEDS: TIOTROPIUM INHALER/CAPSULE (SPIRIVA) INH SCH (07:37)
[2023-06-08] MEDS: LORATADINE 10 MG TAB PO SCH (09:07)
[2023-06-08] MEDS: amLODIPine 5 MG TAB PO SCH (09:07)
[2023-06-08] MEDS: PANTOPRAZOLE 40MG TAB (PROTONIX) PO SCH (09:07)
[2023-06-08] MEDS: FINASTERIDE 5MG TAB PO SCH (12:14)
[2023-06-08] MEDS: MOM 30ML SUSPENSION UDC PO SCH (12:28)
[2023-06-08] MEDS: DOCUSATE SODIUM 100MG CAPSULE PO SCH ×2 (12:28→20:38)
[2023-06-08] MEDS: ACETAMINOPHEN TAB 650MG DOSE (2X325MG) PO PRN (14:28)
[2023-06-08] MEDS: TAMSULOSIN 0.4 MG CAP PO SCH (20:38)
[2023-06-09 00:30] VITALS: BP 144/74; TEMP 98.9; O2SAT 95
[2023-06-09] MEDS: metroNIDAZOLE 500 MG in IV 1 EA IV SCH ×3 (04:16→18:25)
[2023-06-09 04:39] VITALS: BP 160/74; TEMP 98.9; O2SAT 96
[2023-06-09] MEDS: cefTRIAXone SOD 2 GM in D5W MINI-BAG PLUS 50 ML IV SCH (05:26)
[2023-06-09 06:06] LABS: BASO % 0.2 % (0.0-1.0); EOS % 0.3 % (0.0-3.0); HEMATOCRIT 33.6 % (42.0-52.0); HEMOGLOBIN 11.4 g/dl (13.5-17.5); LYMPH # 0.7 10^3/uL (1.5-5.0); LYMPH % 7.6 % (24.0-44.0); MEAN CORPUSCULAR HEMOGLOBIN 31.1 pg (27.0-33.0); MEAN CORPUSCULAR HGB CONC 33.9 g/dl (32.0-36.5); MEAN CORPUSCULAR VOLUME 91.6 fl (80.0-96.0); MONO # 0.6 10^3/uL (0.0-0.8); MONO % 7.2 % (2.0-8.0); NEUTROPHILS # 7.3 10^3/uL (1.5-8.5); NEUTROPHILS % 84.4 % (36.0-66.0); PLATELET COUNT, AUTOMATED 174 10^3/uL (150-450); RED BLOOD COUNT 3.67 10^6/uL (4.30-6.10); WHITE BLOOD COUNT 8.6 10^3/uL (4.0-10.0)
[2023-06-09 06:37] LABS: PROCALCITONIN 4.83 ng/ml
[2023-06-09 06:39] LABS: ALBUMIN 2.7 G/DL (3.2-5.2); ALKALINE PHOSPHATASE 120 U/L (46-116); ALT/SGPT 46 U/L (7.0-40); AST/SGOT 36 U/L (<34); BILIRUBIN,TOTAL 0.9 MG/DL (0.3-1.2); BLOOD UREA NITROGEN 17 MG/DL (9-23); CALCIUM LEVEL 7.7 MG/DL (8.3-10.6); CARBON DIOXIDE LEVEL 25 MMOL/L (20-31); CHLORIDE LEVEL 103 MMOL/L (98-107); GLOMERULAR FILTRATION RATE > 60.0 (>35); GLUCOSE, FASTING 105 MG/DL (74-106); POTASSIUM SERUM 3.8 MMOL/L (3.5-5.1); SODIUM LEVEL 138 MMOL/L (136-145); TOTAL PROTEIN 5.6 G/DL (5.7-8.2)
[2023-06-09] MEDS: TIOTROPIUM INHALER/CAPSULE (SPIRIVA) INH SCH (07:19)
[2023-06-09] MEDS: FORMOTEROL FUMARATE 20 MCG/2 ML INHALATION SOLUTION (PERFOROMIST) INH SCH ×2 (08:00→19:36)
[2023-06-09 08:17] VITALS: BP 159/80; TEMP 99.5; O2SAT 97
[2023-06-09] MEDS: PANTOPRAZOLE 40MG TAB (PROTONIX) PO SCH (08:29)
[2023-06-09] MEDS: amLODIPine 5 MG TAB PO SCH (08:29)
[2023-06-09] MEDS: LORATADINE 10 MG TAB PO SCH (08:29)
[2023-06-09] MEDS: DOCUSATE SODIUM 100MG CAPSULE PO SCH ×2 (09:00→20:04)
[2023-06-09] MEDS: MOM 30ML SUSPENSION UDC PO SCH (09:00)
[2023-06-09] MEDS: FINASTERIDE 5MG TAB PO SCH (11:47)
[2023-06-09 12:00] VITALS: BP 147/66; TEMP 97.4; O2SAT 97
[2023-06-09] MEDS: RIVAROXABAN 10MG TAB (XARELTO) PO SCH (18:25)
[2023-06-09] MEDS: TAMSULOSIN 0.4 MG CAP PO SCH (20:04)
[2023-06-09 20:31] VITALS: BP 145/67; TEMP 98.4; O2SAT 98
[2023-06-10] MEDS: metroNIDAZOLE 500 MG in IV 1 EA IV SCH ×3 (03:24→18:06)
[2023-06-10 04:30] VITALS: BP 132/61; TEMP 98; O2SAT 97
[2023-06-10] MEDS: cefTRIAXone SOD 2 GM in D5W MINI-BAG PLUS 50 ML IV SCH (05:08)
[2023-06-10 05:55] LABS: BASO % 0.3 % (0.0-1.0); EOS # 0.1 10^3/uL (0.0-0.5); EOS % 1.2 % (0.0-3.0); HEMATOCRIT 33.2 % (42.0-52.0); HEMOGLOBIN 11.4 g/dl (13.5-17.5); LYMPH # 0.8 10^3/uL (1.5-5.0); LYMPH % 10.7 % (24.0-44.0); MEAN CORPUSCULAR HEMOGLOBIN 31.4 pg (27.0-33.0); MEAN CORPUSCULAR HGB CONC 34.3 g/dl (32.0-36.5); MEAN CORPUSCULAR VOLUME 91.5 fl (80.0-96.0); MONO # 0.8 10^3/uL (0.0-0.8); NEUTROPHILS # 5.9 10^3/uL (1.5-8.5); NEUTROPHILS % 76.1 % (36.0-66.0); PLATELET COUNT, AUTOMATED 200 10^3/uL (150-450); RED BLOOD COUNT 3.63 10^6/uL (4.30-6.10); WHITE BLOOD COUNT 7.7 10^3/uL (4.0-10.0)
[2023-06-10 06:34] LABS: PROCALCITONIN 2.42 ng/ml
[2023-06-10 06:42] LABS: ALBUMIN 2.6 G/DL (3.2-5.2); ALKALINE PHOSPHATASE 128 U/L (46-116); ALT/SGPT 40 U/L (7.0-40); AST/SGOT 30 U/L (<34); BILIRUBIN,TOTAL 0.6 MG/DL (0.3-1.2); BLOOD UREA NITROGEN 17 MG/DL (9-23); CALCIUM LEVEL 7.7 MG/DL (8.3-10.6); CARBON DIOXIDE LEVEL 26 MMOL/L (20-31); CHLORIDE LEVEL 105 MMOL/L (98-107); CREATININE FOR GFR 0.93 MG/DL (0.70-1.30); GLOMERULAR FILTRATION RATE > 60.0 (>35); GLUCOSE, FASTING 106 MG/DL (74-106); POTASSIUM SERUM 3.5 MMOL/L (3.5-5.1); SODIUM LEVEL 138 MMOL/L (136-145); TOTAL PROTEIN 5.3 G/DL (5.7-8.2)
[2023-06-10] MEDS: FORMOTEROL FUMARATE 20 MCG/2 ML INHALATION SOLUTION (PERFOROMIST) INH SCH ×2 (07:27→19:12)
[2023-06-10] MEDS: TIOTROPIUM INHALER/CAPSULE (SPIRIVA) INH SCH (07:27)
[2023-06-10 07:43] VITALS: BP 145/74; TEMP 98.4; O2SAT 96
[2023-06-10] MEDS: DOCUSATE SODIUM 100MG CAPSULE PO SCH ×2 (08:13→20:03)
[2023-06-10] MEDS: LORATADINE 10 MG TAB PO SCH (08:13)
[2023-06-10] MEDS: amLODIPine 5 MG TAB PO SCH (08:13)
[2023-06-10] MEDS: PANTOPRAZOLE 40MG TAB (PROTONIX) PO SCH (08:13)
[2023-06-10] MEDS: MOM 30ML SUSPENSION UDC PO SCH (08:13)
[2023-06-10 08:15] VITALS: TEMP 98.9
[2023-06-10] MEDS ORDERED: ENOXAPARIN 30MG/0.3ML SYRINGE (J1650 PER 10MG) SC SCH (09:00)
[2023-06-10 11:41] VITALS: BP 123/58; TEMP 98.3; O2SAT 96
[2023-06-10] MEDS: FINASTERIDE 5MG TAB PO SCH (12:26)
[2023-06-10] MEDS: RIVAROXABAN 10MG TAB (XARELTO) PO SCH (18:06)
[2023-06-10 19:54] VITALS: BP 129/60; TEMP 97.4; O2SAT 99
[2023-06-10] MEDS: TAMSULOSIN 0.4 MG CAP PO SCH (20:03)
[2023-06-11] MEDS: metroNIDAZOLE 500 MG in IV 1 EA IV SCH ×2 (03:21→11:15)
[2023-06-11 04:00] VITALS: BP 140/71; TEMP 97.5; O2SAT 99
[2023-06-11 04:25] LABS: BASO % 0.2 % (0.0-1.0); EOS # 0.1 10^3/uL (0.0-0.5); HEMATOCRIT 32.3 % (42.0-52.0); HEMOGLOBIN 10.9 g/dl (13.5-17.5); LYMPH # 0.9 10^3/uL (1.5-5.0); LYMPH % 13.7 % (24.0-44.0); MEAN CORPUSCULAR HEMOGLOBIN 31.2 pg (27.0-33.0); MEAN CORPUSCULAR HGB CONC 33.7 g/dl (32.0-36.5); MEAN CORPUSCULAR VOLUME 92.6 fl (80.0-96.0); MONO # 0.8 10^3/uL (0.0-0.8); MONO % 12.6 % (2.0-8.0); NEUTROPHILS # 4.6 10^3/uL (1.5-8.5); NEUTROPHILS % 70.1 % (36.0-66.0); PLATELET COUNT, AUTOMATED 232 10^3/uL (150-450); RED BLOOD COUNT 3.49 10^6/uL (4.30-6.10); WHITE BLOOD COUNT 6.6 10^3/uL (4.0-10.0)
[2023-06-11 05:07] LABS: ALBUMIN 2.6 G/DL (3.2-5.2); ALKALINE PHOSPHATASE 135 U/L (46-116); ALT/SGPT 38 U/L (7.0-40); AST/SGOT 32 U/L (<34); BILIRUBIN,TOTAL 0.5 MG/DL (0.3-1.2); BLOOD UREA NITROGEN 18 MG/DL (9-23); CALCIUM LEVEL 7.8 MG/DL (8.3-10.6); CARBON DIOXIDE LEVEL 20 MMOL/L (20-31); CHLORIDE LEVEL 108 MMOL/L (98-107); GLOMERULAR FILTRATION RATE > 60.0 (>35); GLUCOSE, FASTING 105 MG/DL (74-106); SODIUM LEVEL 140 MMOL/L (136-145); TOTAL PROTEIN 5.2 G/DL (5.7-8.2)
[2023-06-11] MEDS: cefTRIAXone SOD 2 GM in D5W MINI-BAG PLUS 50 ML IV SCH (05:07)
[2023-06-11 05:14] LABS: PROCALCITONIN 1.23 ng/ml
[2023-06-11] MEDS: TIOTROPIUM INHALER/CAPSULE (SPIRIVA) INH SCH (08:00)
[2023-06-11] MEDS: FORMOTEROL FUMARATE 20 MCG/2 ML INHALATION SOLUTION (PERFOROMIST) INH SCH (08:00)
[2023-06-11 08:27] VITALS: BP 131/64; TEMP 97.5; O2SAT 98
[2023-06-11] MEDS: MOM 30ML SUSPENSION UDC PO SCH (08:41)
[2023-06-11] MEDS: DOCUSATE SODIUM 100MG CAPSULE PO SCH (08:41)
[2023-06-11] MEDS: LORATADINE 10 MG TAB PO SCH (08:42)
[2023-06-11] MEDS: PANTOPRAZOLE 40MG TAB (PROTONIX) PO SCH (08:42)
[2023-06-11 08:43] VITALS: BP 131/64
[2023-06-11] MEDS: amLODIPine 5 MG TAB PO SCH (08:43)
[2023-06-11] MEDS ORDERED: LACTOBACILLUS ACIDOPHILUS CAP (BACID) PO SCH (09:00)
[2023-06-11] MEDS: FINASTERIDE 5MG TAB PO SCH (11:15)
[2023-06-11] MEDS ORDERED: RISATAB3 PO (11:17)
[2023-06-11] MEDS ORDERED: LEVO1TAB40 PO (11:17)
[2023-06-11] MEDS ORDERED: PREVNAR-20 VACCINE 0.5ML SYRINGE IM.IMMUN ONE (14:00)
== END 2023-06-11 13:58 | disposition home or self-care (01) | DRG 720 ==
LOC: M ED 14:02 → M ED INP 20:20 → ENRESERVDT 22:53 → ENRESERVTM 22:53 → M PCU 23:47
PROVIDERS: ADMIT Family Medicine; ATTEND Internal Medicine
PROC: 0FB23ZX Excision of Left Lobe Liver, Percutaneous Approach, Diagnostic (ICD-10-PCS; principal; 2023-06-07 14:00)
DX: A41.9 Sepsis, unspecified organism (principal); J43.9 Emphysema, unspecified; I10 Essential (primary) hypertension; N40.1 Benign prostatic hyperplasia with lower urinary tract symptoms; N32.0 Bladder-neck obstruction; K76.89 Other specified diseases of liver; E87.20 Acidosis, unspecified; K59.09 Other constipation; K75.0 Abscess of liver; N17.9 Acute kidney failure, unspecified; M54.2 Cervicalgia; K56.7 Ileus, unspecified; A09 Infectious gastroenteritis and colitis, unspecified; R74.01 Elevation of levels of liver transaminase levels; R65.20 Severe sepsis without septic shock; B96.1 Klebsiella pneumoniae [K. pneumoniae] as the cause of diseases classified elsewhere; Z79.899 Other long term (current) drug therapy; Z87.891 Personal history of nicotine dependence; Z86.73 Personal history of transient ischemic attack (TIA), and cerebral infarction without residual deficits; Z98.41 Cataract extraction status, right eye; Z98.42 Cataract extraction status, left eye; Z86.010 Personal history of colon polyps

== ENCOUNTER → 2023-06-19 | Outpatient (CLI) | payer OTHER ==
[~2023-06-19] MED LIST changes: +GASTROGRAFIN SOLUTION 30ML As Ordered ONE; +ISOVUE-370 76% 100ML VIAL As Ordered ONE; +LEVO1TAB40 PO; +RISATAB3 PO
== END ==
LOC: M RAD 06:56
PROVIDERS: ATTEND Family Medicine Addiction Medicine
DX: K75.0 Abscess of liver (principal)
CPT/HCPCS: 74177; Q9963; Q9967

== ENCOUNTER → 2023-06-28 | Outpatient (CLI) | payer MEDICAID, MEDICARE, OTHER ==
[~2023-06-28] MED LIST changes: -GASTROGRAFIN SOLUTION 30ML As Ordered ONE; -ISOVUE-370 76% 100ML VIAL As Ordered ONE; +LORA-1041 PO; -LORA-674 PO
[2023-06-28 14:37] LABS: BASO % 0.6 % (0.0-1.0); EOS # 0.1 10^3/uL (0.0-0.5); EOS % 1.7 % (0.0-3.0); HEMATOCRIT 39.2 % (42.0-52.0); HEMOGLOBIN 12.6 g/dl (13.5-17.5); LYMPH % 21.4 % (24.0-44.0); MEAN CORPUSCULAR HEMOGLOBIN 31.6 pg (27.0-33.0); MEAN CORPUSCULAR HGB CONC 32.1 g/dl (32.0-36.5); MEAN CORPUSCULAR VOLUME 98.2 fl (80.0-96.0); MONO # 0.5 10^3/uL (0.0-0.8); MONO % 9.9 % (2.0-8.0); NEUTROPHILS # 3.1 10^3/uL (1.5-8.5); NEUTROPHILS % 65.8 % (36.0-66.0); PLATELET COUNT, AUTOMATED 221 10^3/uL (150-450); RED BLOOD COUNT 3.99 10^6/uL (4.30-6.10); WHITE BLOOD COUNT 4.8 10^3/uL (4.0-10.0)
[2023-06-28 14:38] LABS: C REACTIVE PROTEIN QUANTITATIV < 0.40 MG/DL (<1.0)
[2023-06-28 14:39] LABS: ALBUMIN 3.6 G/DL (3.2-5.2); ALKALINE PHOSPHATASE 115 U/L (46-116); ALT/SGPT 23 U/L (7.0-40); AST/SGOT 25 U/L (<34); BILIRUBIN,TOTAL 0.9 MG/DL (0.3-1.2); BLOOD UREA NITROGEN 27 MG/DL (9-23); CALCIUM LEVEL 9.1 MG/DL (8.3-10.6); CARBON DIOXIDE LEVEL 32 MMOL/L (20-31); CHLORIDE LEVEL 106 MMOL/L (98-107); CREATININE FOR GFR 1.23 MG/DL (0.70-1.30); GLOMERULAR FILTRATION RATE 59.5 (>35); GLUCOSE, FASTING 95 MG/DL (74-106); POTASSIUM SERUM 4.3 MMOL/L (3.5-5.1); SODIUM LEVEL 142 MMOL/L (136-145); TOTAL PROTEIN 6.9 G/DL (5.7-8.2)
[2023-06-28 14:55] LABS: ERYTHROCYTE SEDIMENTATION RATE 37 mm/hr (0-20)
== END ==
LOC: M PLALAB 10:24
PROVIDERS: ATTEND Internal Medicine Infectious Disease
DX: K75.0 Abscess of liver (principal)

== ENCOUNTER → 2023-07-31 | Outpatient (CLI) | payer MEDICAID, OTHER | LOC: M RAD 07:16 | PROVIDERS: ATTEND Internal Medicine Infectious Disease | DX: K75.0 Abscess of liver (principal) ==

== ENCOUNTER → 2023-10-30 | Outpatient (REF) | payer OTHER ==
[~2023-10-30] MED LIST changes: -FLUT50SP17; +FLUTISP
[2023-10-30 13:14] LABS: BASO % 0.7 % (0.0-1.0); EOS # 0.2 10^3/uL (0.0-0.5); EOS % 3.5 % (0.0-3.0); HEMATOCRIT 43.1 % (42.0-52.0); HEMOGLOBIN 14.3 g/dl (13.5-17.5); LYMPH % 16.2 % (24.0-44.0); MEAN CORPUSCULAR HEMOGLOBIN 31.4 pg (27.0-33.0); MEAN CORPUSCULAR HGB CONC 33.2 g/dl (32.0-36.5); MEAN CORPUSCULAR VOLUME 94.7 fl (80.0-96.0); MONO # 0.5 10^3/uL (0.0-0.8); NEUTROPHILS # 4.3 10^3/uL (1.5-8.5); NEUTROPHILS % 71.1 % (36.0-66.0); PLATELET COUNT, AUTOMATED 186 10^3/uL (150-450); RED BLOOD COUNT 4.55 10^6/uL (4.30-6.10)
[2023-10-30 13:45] LABS: IRON (FE) 126 UG/DL (65-175); VITAMIN B12 LEVEL 1018 PG/ML (211-911)
[2023-10-30 13:46] LABS: ALBUMIN 3.9 G/DL (3.2-5.2); ALKALINE PHOSPHATASE 93 U/L (46-116); ALT/SGPT 33 U/L (7.0-40); AST/SGOT 28 U/L (<34); BILIRUBIN,TOTAL 1.4 MG/DL (0.3-1.2); BLOOD UREA NITROGEN 29 MG/DL (9-23); CALCIUM LEVEL 9.4 MG/DL (8.3-10.6); CARBON DIOXIDE LEVEL 35 MMOL/L (20-31); CHLORIDE LEVEL 105 MMOL/L (98-107); CREATININE FOR GFR 1.11 MG/DL (0.70-1.30); GLOMERULAR FILTRATION RATE > 60.0 (>35); GLUCOSE, FASTING 103 MG/DL (74-106); POTASSIUM SERUM 4.3 MMOL/L (3.5-5.1); SODIUM LEVEL 145 MMOL/L (136-145); TOTAL PROTEIN 6.8 G/DL (5.7-8.2)
[2023-10-30 13:48] LABS: FOLATE > 24.0 NG/ML (>5.4)
== END ==
LOC: M LAB REF 12:22
PROVIDERS: ATTEND Family Medicine Addiction Medicine
DX: K75.0 Abscess of liver (principal); D64.9 Anemia, unspecified

== ENCOUNTER 2024-03-10 13:37 | Emergency (ER) | payer OTHER ==
[~2024-03-10] VITALS: Ht 165.1 cm; Wt 57.1 kg
[2024-03-10 15:16] LABS: BASO % 0.6 % (0.0-1.0); EOS # 0.1 10^3/uL (0.0-0.5); EOS % 2.8 % (0.0-3.0); HEMATOCRIT 42.7 % (42.0-52.0); HEMOGLOBIN 14.2 g/dl (13.5-17.5); LYMPH % 20.4 % (24.0-44.0); MEAN CORPUSCULAR HEMOGLOBIN 31.8 pg (27.0-33.0); MEAN CORPUSCULAR HGB CONC 33.3 g/dl (32.0-36.5); MEAN CORPUSCULAR VOLUME 95.7 fl (80.0-96.0); MONO # 0.4 10^3/uL (0.0-0.8); MONO % 8.1 % (2.0-8.0); NEUTROPHILS # 3.5 10^3/uL (1.5-8.5); NEUTROPHILS % 67.9 % (36.0-66.0); PLATELET COUNT, AUTOMATED 161 10^3/uL (150-450); RED BLOOD COUNT 4.46 10^6/uL (4.30-6.10); WHITE BLOOD COUNT 5.1 10^3/uL (4.0-10.0)
[2024-03-10 15:33] LABS: BILIRUBIN,DIRECT 0.3 MG/DL (<0.4); CALCIUM LEVEL 9.2 MG/DL (8.3-10.6); CK-MB VALUE MASS 2.2 NG/ML (<3.6); CREATININE FOR GFR 1.22 MG/DL (0.70-1.30); POTASSIUM SERUM 4.6 MMOL/L (3.5-5.1)
[2024-03-10 15:36] LABS: THYROID STIMULATING HORMONE 0.765 uIU/ML (0.55-4.78)
[2024-03-10 15:37] LABS: MB/CK RELATIVE INDEX 1.17 (< OR =4)
[2024-03-10] MEDS ORDERED: ISOVUE-370 76% 100ML VIAL As Ordered ONE (20:01)
[2024-03-10 20:59] LABS: CK-MB VALUE MASS 1.8 NG/ML (<3.6); MB/CK RELATIVE INDEX 0.9 (< OR =4)
[2024-03-10] MEDS: NS 1,000 ML IV ONE (21:10)
[2024-03-10 22:15] VITALS: BP 160/85; TEMP 98; O2SAT 99
== END 2024-03-10 22:21 | disposition home or self-care (01) ==
LOC: M ED 13:37
DX: I10 Essential (primary) hypertension (principal); R51.9 Headache, unspecified; H05.89 Other disorders of orbit; I45.10 Unspecified right bundle-branch block; Z79.51 Long term (current) use of inhaled steroids; Z79.899 Other long term (current) drug therapy
CPT/HCPCS: 70450; 70496; 70498; 71046; 80048; 80076; 82550; 82553; 84443; 84484; 85025; 93005; 93041; 94760; 96360; 99285; Q9967

== ENCOUNTER → 2024-04-09 | Outpatient (CLI) | payer OTHER ==
[~2024-04-09] MED LIST changes: +PROHANCE 279.3MG/ML 15ML VIAL As Ordered ONE
== END ==
LOC: M RAD 06:51
PROVIDERS: ATTEND Ophthalmology
DX: H05.89 Other disorders of orbit (principal)
CPT/HCPCS: 70543; A9576

== ENCOUNTER → 2024-06-12 | Outpatient (CLI) | payer MEDICARE, OTHER ==
[~2024-06-12] MED LIST changes: -PROHANCE 279.3MG/ML 15ML VIAL As Ordered ONE
== END ==
LOC: M RAD 10:43
PROVIDERS: ATTEND Family Medicine Addiction Medicine
DX: M54.2 Cervicalgia (principal)

== ENCOUNTER → 2024-10-23 | Outpatient (REF) | payer MEDICARE, MEDICAID ==
[2024-10-23 14:01] LABS: ALBUMIN 4.1 G/DL (3.2-5.2); ALKALINE PHOSPHATASE 154 U/L (40-129); ALT/SGPT 67 U/L (7.0-40); AST/SGOT 46 U/L (<34); BILIRUBIN,TOTAL 1.3 MG/DL (0.3-1.2); BLOOD UREA NITROGEN 26 MG/DL (9-23); CALCIUM LEVEL 9.6 MG/DL (8.3-10.6); CARBON DIOXIDE LEVEL 32 MMOL/L (20-31); CHLORIDE LEVEL 103 MMOL/L (98-107); CHOLESTEROL LEVEL 159 MG/DL (<200); CHOLESTEROL RISK RATIO 2.62 (<5); CREATININE FOR GFR 1.14 MG/DL (0.70-1.30); GLOMERULAR FILTRATION RATE > 60.0 (>35); GLUCOSE, FASTING 94 MG/DL (74-106); HDL CHOLESTEROL 60.5 MG/DL (>40); LDL CHOLESTEROL 84.9 MG/DL (<100); NON-HDL-C 98.5 MG/DL; POTASSIUM SERUM 4.3 MMOL/L (3.5-5.1); SODIUM LEVEL 143 MMOL/L (136-145); TOTAL PROTEIN 7.4 G/DL (5.7-8.2); TRIGLYCERIDES LEVEL 68 MG/DL (<150)
[2024-10-23 14:03] LABS: FREE T4 1.54 NG/DL (0.89-1.76); THYROID STIMULATING HORMONE 0.769 uIU/ML (0.55-4.78)
== END ==
LOC: M LAB REF 13:00
PROVIDERS: ATTEND Family Medicine Addiction Medicine
DX: I10 Essential (primary) hypertension (principal)

== ENCOUNTER → 2025-05-15 | Outpatient (CLI) | payer MEDICARE, MEDICAID ==
[~2025-05-15] MED LIST changes: -FLOM0.4C39 PO; +TAMS-18 PO
[2025-05-15 10:51] LABS: ALT/SGPT 32.0 U/L (7.0-40); AST/SGOT 32.0 U/L (<34); CALCIUM LEVEL 9.1 MG/DL (8.3-10.6); CARBON DIOXIDE LEVEL 29.0 MMOL/L (20-31); CHLORIDE LEVEL 104.0 MMOL/L (98-107); CHOLESTEROL LEVEL 175.0 MG/DL (<200); CHOLESTEROL RISK RATIO 2.69 (<5); CREATININE FOR GFR 1.35 MG/DL (0.70-1.30); FREE T4 1.59 NG/DL (0.89-1.76); GLOMERULAR FILTRATION RATE 50.8 (>35); LDL CHOLESTEROL 93.8 MG/DL (<100); NON-HDL-C 110.0 MG/DL; POTASSIUM SERUM 3.8 MMOL/L (3.5-5.1); SODIUM LEVEL 146.0 MMOL/L (136-145); TRIGLYCERIDES LEVEL 81.0 MG/DL (<150)
== END ==
LOC: M LAB 09:06
PROVIDERS: ATTEND Family Medicine Addiction Medicine
DX: I10 Essential (primary) hypertension (principal)

== ENCOUNTER → 2025-10-05 | Outpatient (REF) | payer MEDICARE, MEDICAID ==
[2025-10-05 13:35] LABS: ALT/SGPT 51 U/L (7.0-40); AST/SGOT 44 U/L (<34); C REACTIVE PROTEIN QUANTITATIV < 0.50 MG/DL (<1.0); CALCIUM LEVEL 9.2 MG/DL (8.3-10.6); CARBON DIOXIDE LEVEL 33 MMOL/L (20-31); CHLORIDE LEVEL 102 MMOL/L (98-107); CREATININE FOR GFR 1.25 MG/DL (0.70-1.30); GLOMERULAR FILTRATION RATE 55.4 (>35); POTASSIUM SERUM 4.4 MMOL/L (3.5-5.1); SODIUM LEVEL 142 MMOL/L (136-145)
== END ==
LOC: M LAB REF 12:30
PROVIDERS: ATTEND Family Medicine Addiction Medicine
DX: M25.50 Pain in unspecified joint (principal)

== ENCOUNTER → 2025-10-12 | Outpatient (CLI) | payer MEDICARE, MEDICAID | LOC: M CARPUL 15:09 | PROVIDERS: ATTEND Family Medicine Addiction Medicine | DX: R06.02 Shortness of breath (principal) ==